=== PATIENT | male | born 1950 | race Caucasian/White ===

== ENCOUNTER 2018-12-30 05:25 | Inpatient (IN) ==
[2018-12-30] MEDS ORDERED: Vancomycin Inj 1,000 MG in Sodium Chlor 0.9% Inj 250 ML IV.SIG SCH (06:00)
[2018-12-30] MEDS ORDERED: Metoprolol Tartrate 25 MG Tablet PO ONE (06:00)
[2018-12-30] MEDS ORDERED: Chlorhexidine Gluconate 2% 1 Pack (2 Cloths) TOPICAL ONE (06:00)
[2018-12-30] MEDS ORDERED: ceFAZolin 2 GM IV; once IV.SIG ONE (06:00)
[2018-12-30] MEDS ORDERED: Chlorhexidine 4% Topical 120 APPLIC/120 ML Bottle TOPICAL SCH (06:00)
[2018-12-30] MEDS ORDERED: Sodium Chlor 0.9% Inj 500 ML IV.CONT ONE (06:00)
[2018-12-30 06:54] LABS: Bacteria,Urine Occasional /hpf; Bilirubin,Urine Negative (Negative); Clarity,Urine Clear (Clear); Color,Urine Yellow (Yellw/Straw); Glucose,Urine (UA) Negative (Negative); Hyaline Casts,Urine 1 /lpf (0-3); Leukocyte Esterase,Urine Moderate (Negative); Mucus,Urine Few /lpf (Occasional); Nitrite,Urine Negative (Negative); Specific Gravity,Urine 1.018 (1.002-1.035); Squamous Epithelial Cell,Urine <1 /hpf (0-5)
[2018-12-30 06:55] LABS: Urobilinogen,Urine 0.2 mg/dL (Less than 2)
[2018-12-30] MEDS ORDERED: Tobramycin Sulfate 1,200 MG Vial (for ortho/sterile core) OTHER ONE (07:34)
[2018-12-30] MEDS ORDERED: Lidocaine PF 1% Inj 5 ML Syringe INFILTRATN ONE (08:19)
[2018-12-30] MEDS ORDERED: Post-op Orders (for Pharmacy) OTHER STA (09:34)
[2018-12-30] MEDS ORDERED: Bisacodyl 10 MG Supp RECTAL PRN (09:34)
[2018-12-30] MEDS ORDERED: Promethazine 25 MG Supp RECTAL PRN (09:34)
--- NOTE | 2018-12-30 09:43 | P.OP ---
- Preoperative Diagnosis (1) Chronic osteomyelitis of right tibia Date of procedure: 12/30/18 Procedure: Removal of deep hardware, irrigation debridement of right tibia osteomyelitis, placement of antibiotic beads Surgeon: Germán Cade MD Paddle Dyeing Machine Operator: WILLIAM Jolly PA-C The surgical procedure was assisted by my physician drafter assistant. My P.A. presence was necessary throughout this case for the manipulation and positioning of the surgical extremity. My P.A. was assisting me throughout the duration of this procedure. The skill set of a physician drafter assistant was medically necessary to complete this procedure. During the surgical case the surgical coordinator was working at the back table and the physician drafter assistant was directly assisting me. Operation and Findings: Jack is a 68-year-old male who previously had open right tibia fracture treated with intramedullary nail fixation. He has had previous problems with infection. He has been treated with IV antibiotics. He has had persistent drainage from multiple sites along his tibia. Informed consent was obtained and OpSite was marked. Prior to surgery I discussed with patient the risk and benefits of surgery. I discussed the plan of removal of hardware, irrigation and debridement of tibia, and placement of antibiotic beads. He understands that there is a possibility of recurrence of infection. He was brought the operating room. He was given IV sedation and general anesthesia. Antibiotics were held until cultures were obtained. Right leg was prepped with alcohol followed by Hibiclens and draped in usual sterile fashion. Timeout procedure was performed. Procedure began with removal of hardware. Incisions were made over the screws. 3 screws were localized under fluoroscopy. There was significant scar tissue around the screws. Screws were now loosened. A 3 cm incision was now made over the anterior knee. A medial arthrotomy was created. A guidepin was now placed through the proximal tibia into the canal. Using fluoroscopy the guidepin was placed into the tibial nail. An opening reamer was now placed over the guidepin to open the tibial cortex. Using appropriate screwdriver the end cap was removed. Next an extractor was screwed into the nail. Each of the screws were now removed. The nail was now back slapped and removed. Fluoroscopy confirmed that fracture was healed and all appropriate hardware had been removed. Next attention was turned to irrigation debridement of the tibia. A ball- tipped guidepin was placed down the canal of the tibia. Fluoroscopy confirmed the guidepin placement. The canal was sequentially reamed up to size 13. Tissue was obtained from the tibial canal for cultures. Curettes and rongeurs were also used to debride around the screw holes. Next a canal brush was used to help clean the tibial canal. Pulsatile lavage was also used to clean the tibial canal. Next this posterior and antibiotic bead placement. 20 cc of Stimulan bone cement was mixed with 2 g of vancomycin and 1.2 g tobramycin. Cement was made into 2 pellets. Once the pellets were completely set, the pellets were packed into the tibial canal. Fluoroscopy confirmed appropriate placement of antibiotic beads. At this point the incisions were closed with 0 PDS, 3-0 PDS, and 3-0 nylon. Sterile dressings were applied. Patient was transferred to recovery room in stable condition.
[2018-12-30] MEDS ORDERED: *HYDROmorphone PF Inj 1 MG/ML Ampul PERIprocedural Use ONLY ONE ×3 (10:10→11:28)
[2018-12-30] MEDS ORDERED: fentaNYL Citrate Inj 100 MCG/2 ML Ampul ONE (10:13)
[2018-12-30] MEDS ORDERED: Morphine Inj 4 MG/ML Vial ONE (10:14)
--- NOTE | 2018-12-30 10:17 | P.PNOP ---
Subjective Interval history: POD 0 s/p Removal of tibial nail with I&D and Abx bead placement right tibia stable in pacu Physical Exam Vital signs: Vital Signs 12/30/18 06:42 Temperature 98.2 F Pulse Rate 65 Respiratory Rate 18 Blood Pressure 126/74 Pulse Oximetry 95 Intake & Output 12/29/18 12/30/18 12/30/18 18:59 06:59 18:59 Intake Total 1000 / 1000 Output Total 200 / 200 Balance 800 / 800 Weight 88.4 kg Intake: IV 1000 / 1000 LR 1000 mL Inj 1,000 ML @ 30 1000 / 1000 mls/hr IV.CONT .Q24H ONE Rx#: [id number] Output: Estimated Blood Loss 200 / 200 Other: Weight On Admission 88.4 kg Narrative: RLE: dressings clean and dry. intact. Results - Labs Laboratory Results - last 24 hr 12/30/18 06:00 Urine Color Yellow Urine Clarity Clear Urine pH 5.0 Ur Specific [place] 1.018 Urine Protein Negative Urine Glucose (UA) Negative Urine Ketones Negative Urine Occult Blood Negative Urine Nitrate Negative Urine Bilirubin Negative Urine Urobilinogen 0.2 Ur Leukocyte Esterase Moderate H Urine RBC 3 Urine WBC 32 H Ur Squamous Epith Cells <1 Urine Bacteria Occasional H Hyaline Casts 1 Urine Mucus Few H Micro UA Comment Culture indicated Ur Microscopic Review Not Reportable Urine Culture Comments Culture indicated Assessment and Plan - Assessment and Plan 1) Right Tibial Nail HW infection s/p Removal of tibial nail with I&D and Abx bead placement right tibia - POD 0 -WBAT -daily dressing changes with xeroform/4x4/MARK -monitor cultures -infectious disease consulted -will likely need IV Abx given chronicity of infection. will await ID recs -patient receiving pain meds from pain mgmt and last received Rx on 12/19 for a 1 month supply of oxycodone 10/325 -will defer to pain mgmt for rx moving forward -plan for home with [facility] pending cultures and infectious dz recs -f/u with Jose David or SARANYA in 2 weeks E-FORE Prescription Drug Monitoring Database has been queried and verified prior to prescribing the controlled substance. Acute pain exception. This patient has normal, predicted, physiological, and time limited response to an adverse mechanical stimulus associated with surgery, trauma, or acute illness as described in my notes. There is a lack of alternative treatment options other than to include the prescribed narcotic treatment for this condition.
[2018-12-30] MEDS ORDERED: HYDROmorphone PF Inj 1 MG/ML Ampul IV.PUSH ONE (11:28)
--- NOTE | 2018-12-30 14:55 | ECG ---
Date Performed: 12/30/2018 Time Performed: 06:17:28 PTAGE: 68 years EKG: Sinus rhythm SEPTAL MYOCARDIAL INFARCTION , OF INDETERMINATE AGE POSSIBLE LATERAL MYOCARDIAL INFARCTION , OF INDE TERMINATE AGE CRITERIA FOR THE SEPTAL INFARCT ARE NEW AND IT MAY BE THAT LEADS V1 AND V2 ARE REVERSED . CLINICAL CORRELATION IS ADVISED ABNORMAL ECG Compared to PREVIOUS TRACING , there has been an overall increase in voltage and the lateral T-wave c hanges. PREVIOUS TRACIN12/24/2011 07.22 DOCTOR: Susana Lyman Interpretating Date/Time 12/30/2018 14:47:59
[2018-12-30] MEDS ORDERED: Vancomycin Consult Pharmacy OTHER PRN (15:01)
--- NOTE | 2018-12-30 15:10 | P.CONID ---
History of Present Illness Service: Infectious disease Consult date: 12/30/18 Requesting Physician: Germán Cade Reason for Consult: Evaluate patient with osteo right leg status post removal of hardware Primary Care Provider: Jacob Quinteros MD History of Present Illness: Patient seen and examined. Records reviewed. Patient is a 68-year-old male, admitted to the hospital for his surgery on his right lower extremity. Patient originally had the injury back in 2011 when he sustained an open fracture of his right tib fibula. He underwent repair and had an IM and screws in place. According to the patient after that he developed an infection, and received a course of IV antibiotics that was given to him for 6 weeks. He thinks is around [address] Castillo was the infectious disease doctor who treated him. Patient stated he has had other hospitalizations and surgery on his right lower extremity due to infection and they were all done in [facility]. He thinks that he has not received any other course of long IV antibiotics. He apparently has been having problem with draining wounds on his right lower extremity one in the ankle area one in the mid anterior rosen, and one below the right knee. He was told that he had an MRSA infection previously. Patient has been on and off oral Bactrim over the last 1 year that his primary care physician prescribed to him. Patient was brought into the hospital this time, and he underwent surgery , had removal of the hardware and placement of antibiotic beads. He denies any fever chills or sweats. He has not had any problem as far as diarrhea or rash or itching. Denies any urinary complaints. Infectious disease consultation has been requested to assist with evaluation and treatment of his ongoing infection. Review of Systems Constitutional: Denies chills, Denies fever(s), Denies night sweats Eyes: Denies discharge, Denies dry eyes Ears, Nose, Mouth, and Throat: Denies difficulty swallowing, Denies lip swelling , Denies nasal congestion, Denies nasal discharge, Denies pain with swallowing, Denies sore throat Cardiovascular: Denies chest pain, Denies shortness of breath Respiratory: Denies chest congestion, Denies cough, Denies shortness of breath Gastrointestinal: Denies abdominal pain, Denies loose stools, Denies nausea, Denies pain with swallowing, Denies vomiting Genitourinary: Denies difficulty urinating, Denies painful urination Musculoskeletal: Reports joint pain, Denies joint swelling Skin/Breast: Reports wounds PMFSH - History History Provided By: Patient - Medical History Medical History: Medical History (Last Reviewed 12/30/18 @ 15:06 by Ashlyn Camarillo MD) Hernia, inguinal, left High cholesterol Hypertension - Surgical History Surgical History: Surgical History (Last Reviewed 12/30/18 @ 15:06 by Ashlyn Camarillo MD) History of arthroscopy of both knees History of back surgery History of hip surgery History of orthopedic surgery Hx of CABG Hx of cardiac cath - Tobacco History Second Hand Smoke Exposure: No Tobacco Use In Past 30 Days: No Smoking Status: Former smoker - Alcohol History How Often Do You Have a Drink Containing Alcohol: 2 to 4 times a month - Substance Use History Substance History: No History of Abuse Medications and Allergies Active Medications: Active Medications Hydrocodone Bitart/Acetaminophen ([place] 7.5/325) 1 tab PO Q3H PRN PRN Reason: Pain Scale 3-10 Al Hydroxide/Mg Hydroxide (Milk Of Magnesia Liq) 30 ml PO BID PRN PRN Reason: MILD CONSTIPATION Bisacodyl (Dulcolax Supp) 10 mg RECTAL DAILY PRN PRN Reason: SEVERE CONSITIPATION Chlorhexidine Gluconate (Hibiclens 4% Topical) 1 applicatio TOPICAL ONCE [facility] Stop: 01/03/19 05:59 Diphenhydramine HCl (Benadryl) 25 mg PO Q6H PRN PRN Reason: ITCHING Lactated Ringer's (Lr 1000 Ml Inj) 1,000 mls @ 30 mls/hr IV.CONT .Q24H ONE Stop: 12/31/18 05:59 Last Infusion: 12/30/18 09:07 Dose: Infused Sodium Chloride (Ns Inj) 500 mls @ 30 mls/hr IV.CONT .[id number] ONE Stop: 12/30/18 22:39 Last Admin: 12/30/18 08:22 Dose: Not Given Vancomycin HCl 1,000 mg/ (Sodium Chloride) 250 mls @ 250 mls/hr IV.SIG [employer] [facility] Stop: 01/02/19 05:59 Lactated Ringer's (Lr 1000 Ml Inj) 1,000 mls @ 80 mls/hr IV.CONT .[id number] [facility] Last Admin: 12/30/18 13:58 Dose: Not Given Vancomycin HCl 1,000 mg/ (Sodium Chloride) 250 mls @ 200 mls/hr IV.SIG Q12H [facility] Stop: 12/31/18 10:14 Miscellaneous Information ([facility]) 1 each OTHER UNSCH PRN PRN Reason: SEE LABEL COMMENTS Stop: 12/31/18 10:04 Morphine Sulfate (Morphine Inj) 4 mg IV.PUSH Q3H PRN PRN Reason: BREAKTHROUGH PAIN Ondansetron HCl (Zofran Odt) 4 mg PO Q6H PRN PRN Reason: NAUSEA OR VOMITING Ondansetron HCl (Zofran Inj) 4 mg IV.PUSH Q6H PRN PRN Reason: NAUSEA OR VOMITING Promethazine HCl (Phenergan) 25 mg PO Q6H PRN PRN Reason: NAUSEA OR VOMITING Promethazine HCl (Phenergan Supp) 25 mg RECTAL Q6H PRN PRN Reason: NAUSEA OR VOMITING Senna/Docusate Sodium (Radha-Colace) 1 tab PO BID [facility] Sennosides (Senokot) 17.2 mg PO BID PRN PRN Reason: Moderate Constipation Sodium Chloride (Ns Flush) 2 ml IV.FLUSH BID [facility] Sodium Chloride (Ns Flush) 2 ml IV.FLUSH PRN PRN PRN Reason: FLUSH AFTER USING IV ACCESS Allergies Allergy/AdvReac Type Severity Reaction Status Date / Time No Known Allergies Allergy Verified 12/28/18 14:16 Home Medications Medication Instructions Recorded Confirmed Type clopidogrel [Plavix] 75 mg PO DAILY 10/14/18 12/30/18 History lisinopril 10 mg PO DAILY 10/14/18 12/30/18 History naloxone [Narcan] 1 spray INTRANASAL Q2-3M PRN 10/14/18 12/30/18 History oxycodone-acetaminophen 1 tab PO Q6H PRN 10/14/18 12/30/18 History aspirin 325 mg PO DAILY 12/28/18 12/30/18 History metoprolol succinate 25 mg PO BID 12/28/18 12/30/18 History Exam Vital signs: Vital Signs 12/30/18 06:42 12/30/18 10:04 12/30/18 10:15 Temperature 98.2 F 97.8 F Pulse Rate 65 75 75 Respiratory Rate 18 14 15 Blood Pressure 126/74 146/73 H 142/69 H Pulse Oximetry 95 95 96 12/30/18 10:30 12/30/18 10:45 12/30/18 11:00 Temperature Pulse Rate 71 75 73 Respiratory Rate 13 16 12 Blood Pressure 122/63 132/78 115/65 Pulse Oximetry 94 L 96 95 12/30/18 11:15 12/30/18 11:30 12/30/18 12:01 Temperature Pulse Rate 71 74 74 Respiratory Rate 14 20 22 Blood Pressure 120/68 105/65 116/69 Pulse Oximetry 95 95 97 12/30/18 13:00 12/30/18 13:30 Temperature 98.5 F Pulse Rate 76 80 Respiratory Rate 20 19 Blood Pressure 115/69 115/69 Pulse Oximetry 96 95 Intake & Output 12/29/18 12/30/18 12/30/18 18:59 06:59 18:59 Intake Total 1000 / 1000 Output Total 200 / 200 Balance 800 / 800 Weight 88.4 kg Intake: IV 1000 / 1000 LR 1000 mL Inj 1,000 ML @ 30 1000 / 1000 mls/hr IV.CONT .Q24H ONE Rx#: [id number] Output: Estimated Blood Loss 200 / 200 Other: Weight On Admission 88.4 kg Narrative: Physical examination GENERAL: Patient is a well-nourished, well-developed male, awake and alert, not in respiratory distress. SKIN: Cool and dry. No generalized rash, no ecchymoses and no evidence of embolic lesions. HEAD: Atraumatic. Normocephalic. No temporal wasting, or tenderness. EYES: [place] conjunctiva. No petechia or hemorrhage. Pupils equal, round and reactive to light. Extraocular movements full and intact. No scleral icterus. No injection or drainage. EARS, NOSE AND THROAT: Nose without bleeding or purulent nasal discharge. No sinus tenderness. Mucous membranes pink and moist. No oral lesions noted. No exudate. No oral thrush. NECK: Trachea midline. Supple and not tender, no meningeal signs CARDIOVASCULAR: Regular rate and rhythm. No murmurs, rubs or gallops heard RESPIRATORY: Clear to auscultation. Breath sounds equal bilaterally. No rales , wheezing or rhonchi ABDOMEN: Soft, non-tender, nondistended. Bowel sounds present and normoactive. No guarding. No rebound. No organomegaly. EXTREMITIES: No clubbing, cyanosis, or edema. He has dry intact dressings on his RLE from OR today. No calf tenderness. NEUROLOGICAL: Awake and alert. Cranial nerves grossly intact. Motor grossly within normal limits. PSYCHIATRIC: Normal affect, calm and cooperative. LINE: No evidence of infection Results - Labs Labs: Laboratory Results - last 24 hr 12/30/18 06:00 Urine Color Yellow Urine Clarity Clear Urine pH 5.0 Ur Specific [place] 1.018 Urine Protein Negative Urine Glucose (UA) Negative Urine Ketones Negative Urine Occult Blood Negative Urine Nitrate Negative Urine Bilirubin Negative Urine Urobilinogen 0.2 Ur Leukocyte Esterase Moderate H Urine RBC 3 Urine WBC 32 H Ur Squamous Epith Cells <1 Urine Bacteria Occasional H Hyaline Casts 1 Urine Mucus Few H Micro UA Comment Culture indicated Ur Microscopic Review Not Reportable Urine Culture Comments Culture indicated Assessment and Plan - Plan Impression Chronic infection RLE, 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 Recommendation Get some baseline labs, CBC, CMP, ESR, CRP Get records from his primary care physician if any cultures done in the last year Follow results of the culture and adjust antibiotics accordingly IV Vanco IV cefepime Will adjust once cultures are available He will need a course of IV antibiotics, possibly 6 weeks, may need p.o. as well Will need to wait for the results of the culture to determine what antibiotics to use for discharge Discussed with the patient that he will referred back to his ID when he gets discharge from the hospital to follow him on his treatment and make changes if indicated I will follow along with you Thank you for this consultation I will be GURPREET 12/31-01/08 Other ID MD covering in my absence
[2018-12-30 17:38] LABS: Albumin 3.4 g/dL (3.4-5.0); Anion Gap 7 meq/L (5-15); Aspartate Aminotransferase 46 U/L (15-37); Blood Urea Nitrogen 13 mg/dL (7-18); Calcium 8.1 mg/dL (8.5-10.1); Carbon Dioxide 24.1 meq/L (21.0-32.0); Chloride 105 meq/L (98-107); Glomerular Filtration Rate 58 mL/min (>89); Glucose,Random 187 mg/dL (74-106); Potassium 4.7 meq/L (3.5-5.1); Sodium 136 meq/L (136-145)
[2018-12-30 17:42] LABS: Alanine Aminotransferase 47 U/L (12-78); Alkaline Phosphatase 94 U/L (45-117); C-Reactive Protein 0.66 mg/dL (0.00-0.30); Total Protein 6.5 g/dL (6.4-8.2)
[2018-12-30 17:44] LABS: Baso % (Auto) 0.7 % (0.0-2.0); Eos % (Auto) 0.1 % (0.0-4.0); Hematocrit 40.7 % (39.0-51.0); Hemoglobin 14.1 gm/dL (13.0-17.0); Lymph # (Auto) 0.3 th/mm3 (1.0-4.8); Lymph % (Auto) 5.1 % (9.0-44.0); Mean Corpuscular HGB Conc 34.5 % (32.0-36.0); Mean Corpuscular Hemoglobin 36.1 pg (27.0-34.0); Mean Corpuscular Volume 104.5 fL (80.0-100.0); Mean Platelet Volume 9.7 fL (7.0-11.0); Mono # (Auto) 0.3 th/mm3 (0.0-0.9); Neut # (Auto) 6.1 th/mm3 (1.8-7.7); Neut % (Auto) 90.1 % (16.0-70.0); Platelet Count 143 th/mm3 (150-450); Red Cell Distribution Width 13.2 % (11.6-17.2); White Blood Count 6.8 th/mm3 (4.0-11.0)
[2018-12-30 19:24] LABS: Erythrocyte Sedimentation Rate 10 mm/hr (0-20)
--- NOTE | 2018-12-30 19:32 | XR ---
EXAM DATE: 12/30/2018 7:29 PM EST AGE/SEX: 68 years / Male INDICATIONS: Right tibia hardware removal and antibiotic spacer placement. CLINICAL DATA: This is the patient's initial encounter. Patient reports that signs and symptoms have been present for 1 day and indicates a pain score of Nonresponsive. MEDICAL/SURGICAL HISTORY: Non-responsive. Non-responsive. COMPARISON: No prior exams available for comparison. FINDINGS: 6 images from the OR have been submitted. There is a tract seen along the tibia presumably from an in tramedullary shar that has been removed. This is now packed with numerous cylindrical packing material extending from the distal aspect of the tibia to the proximal tibia through the defect. CONCLUSION: Placement of multiple cylindrical densities in the tract of a intramedullary shar at the tibia. Electronically signed by: Kostas Lawson MD Board Certified Radiologist 12/30/2018 7:31 PM EST
[2018-12-30] MEDS: Morphine Inj 4 MG/ML Vial IV.PUSH PRN (19:46)
[2018-12-30] MEDS: Senna/Docusate Sodium 8.6/50 MG Tablet PO SCH ×2 (19:47→22:33)
[2018-12-30] MEDS: Vancomycin Inj 1,000 MG in Sodium Chlor 0.9% Inj 250 ML IV.SIG SCH ×2 (19:47→22:33)
[2018-12-31] MEDS: Morphine Inj 4 MG/ML Vial IV.PUSH PRN ×5 (04:18→22:47)
--- NOTE | 2018-12-31 07:27 | P.PNOP ---
Subjective Interval history: POD 1 s/p removal of IMN with Abx bead placement right tibia doing well. states pain and swelling Physical Exam Vital signs: Vital Signs 12/30/18 10:04 12/30/18 10:15 12/30/18 10:30 Temperature 97.8 F Pulse Rate 75 75 71 Respiratory Rate 14 15 13 Blood Pressure 146/73 H 142/69 H 122/63 Pulse Oximetry 95 96 94 L 12/30/18 10:45 12/30/18 11:00 12/30/18 11:15 Temperature Pulse Rate 75 73 71 Respiratory Rate 16 12 14 Blood Pressure 132/78 115/65 120/68 Pulse Oximetry 96 95 95 12/30/18 11:30 12/30/18 12:01 12/30/18 13:00 Temperature Pulse Rate 74 74 76 Respiratory Rate 20 22 20 Blood Pressure 105/65 116/69 115/69 Pulse Oximetry 95 97 96 12/30/18 13:30 12/30/18 16:00 12/30/18 20:00 Temperature 98.5 F 97.7 F 97.9 F Pulse Rate 80 83 76 Respiratory Rate 19 17 20 Blood Pressure 115/69 122/58 L 117/61 Pulse Oximetry 95 94 L 95 12/31/18 00:00 12/31/18 02:32 12/31/18 04:00 Temperature 98.4 F 97.6 F Pulse Rate 68 64 Respiratory Rate 20 20 20 Blood Pressure 96/52 L 111/65 Pulse Oximetry 94 L 96 12/31/18 04:23 Temperature Pulse Rate Respiratory Rate 20 Blood Pressure Pulse Oximetry Intake & Output 12/30/18 12/31/18 12/31/18 18:59 06:59 18:59 Intake Total 1000 / 1000 350 / 350 Output Total 200 / 200 Balance 800 / 800 350 / 350 Weight 88 kg 82.6 kg Intake: IV 1000 / 1000 350 / 350 LR 1000 mL Inj 1,000 ML @ 30 1000 / 1000 mls/hr IV.CONT .Q24H ONE Rx#: [id number] Maxipime Inj 2,000 MG In NS Inj 100 / 100 100 ML @ 200 mls/hr IV.SIG Q12H [facility] Rx#:[id number] Vancomycin Inj 1,000 MG In NS 250 / 250 Inj 250 ML @ 200 mls/hr IV.SIG Q12H [facility] Rx#:[id number] Output: Estimated Blood Loss 200 / 200 Narrative: RLE: dressings clean and dry. intact. NVI Results - Labs CBC & Chem 7: 12/30/18 14:40 12/30/18 14:40 Laboratory Results - last 24 hr 12/30/18 12/30/18 14:40 14:40 WBC 6.8 RBC 3.90 L Hgb 14.1 Hct 40.7 MCV 104.5 H MCH 36.1 H MCHC 34.5 RDW 13.2 Plt Count 143 L MPV 9.7 Neut % (Auto) 90.1 H Lymph % (Auto) 5.1 L Harvey % (Auto) 4.0 Eos % (Auto) 0.1 Baso % (Auto) 0.7 Neut # (Auto) 6.1 Lymph # (Auto) 0.3 L Harvey # (Auto) 0.3 Eos # (Auto) 0.0 Baso # (Auto) 0.0 WBC Differential . Differential Comment Auto diff final ESR 10 Sodium 136 Potassium 4.7 Chloride 105 Carbon Dioxide 24.1 Anion Gap 7 BUN 13 Creatinine 1.24 Estimated GFR 58 L Random Glucose 187 H Calcium 8.1 L Total Bilirubin 0.5 AST 46 H ALT 47 Alkaline Phosphatase 94 C-Reactive Protein 0.66 H Total Protein 6.5 Albumin 3.4 Microbiology 12/30/18 09:00 Tissue - Other Fungal Smear - Final No fungal elements seen 12/30/18 09:00 Tissue - Other Gram Stain - Final 12/30/18 09:00 Tissue - Other Fungal Smear - Final No fungal elements seen 12/30/18 09:00 Tissue - Other Gram Stain - Final 12/30/18 09:00 Wound - Other Fungal Smear - Final No fungal elements seen 12/30/18 09:00 Wound - Other Gram Stain - Final - Imaging Impressions Tibia/Fibula X-Ray 12/30/18 00:00 CONCLUSION: Placement of multiple cylindrical densities in the tract of a intramedullary shar at the tibia. Assessment and Plan - Assessment and Plan 1) Right Tibial Nail HW infection s/p Removal of tibial nail with I&D and Abx bead placement right tibia - POD 1 -WBAT -daily dressing changes with xeroform/4x4/MARK beginning POD 2 -monitor cultures -infectious disease consulted -will likely need IV Abx given chronicity of infection. will await ID recs -patient receiving pain meds from pain mgmt and last received Rx on 12/19 for a 1 month supply of oxycodone -will defer to pain mgmt for rx moving forward -plan for home with [facility] pending cultures and infectious dz recs -f/u with Jose David or SARANYA in 2 weeks E-FORCSE Prescription Drug Monitoring Database has been queried and verified prior to prescribing the controlled substance. Acute pain exception. This patient has normal, predicted, physiological, and time limited response to an adverse mechanical stimulus associated with surgery, trauma, or acute illness as described in my notes. There is a lack of alternative treatment options other than to include the prescribed narcotic treatment for this condition.
[2018-12-31] MEDS: Senna/Docusate Sodium 8.6/50 MG Tablet PO SCH ×2 (08:52→20:45)
[2018-12-31 09:31] LABS: Hematocrit 40.3 % (39.0-51.0); Hemoglobin 13.7 gm/dL (13.0-17.0)
[2018-12-31] MEDS: Vancomycin Inj 1,750 MG in Sodium Chlor 0.9% Inj 500 ML IV.SIG SCH (10:15)
[2018-12-31] MEDS: Lisinopril 10 MG Tablet PO SCH (14:08)
[2019-01-01] MEDS: Morphine Inj 4 MG/ML Vial IV.PUSH PRN ×6 (03:09→21:52)
[2019-01-01] MEDS: Vancomycin Inj 1,750 MG in Sodium Chlor 0.9% Inj 500 ML IV.SIG SCH ×2 (04:00→21:55)
--- NOTE | 2019-01-01 07:16 | P.PNOP ---
Subjective Interval history: POD 2 s/p removal of nail with I&D and Abx bead placement right tibia doing well. states pain and inability to walk. no changes. states stiffness of knee and ankle. cultures show MRSA Physical Exam Vital signs: Vital Signs 12/31/18 08:00 12/31/18 12:00 12/31/18 16:00 Temperature 97.5 F L 98 F 98.6 F Pulse Rate 69 77 70 Respiratory Rate 17 17 17 Blood Pressure 133/79 134/66 132/70 Pulse Oximetry 98 96 96 12/31/18 20:00 01/01/19 00:00 01/01/19 04:24 Temperature 98.9 F 98.5 F 98.5 F Pulse Rate 81 74 76 Respiratory Rate 18 18 17 Blood Pressure 149/70 H 128/78 132/73 Pulse Oximetry 98 96 96 Intake & Output 12/31/18 01/01/19 01/01/19 18:59 06:59 18:59 Intake Total 1237.5 / 1237.5 1277.5 / 1277.5 Output Total 2500 / 2500 1924 / 5 Balance -1262.5 / -1262.5 -647.5 / -647.5 Weight 82.6 kg Intake: IV 717.5 / 717.5 517.5 / 517.5 Maxipime Inj 2,000 MG In NS Inj 200 / 200 100 ML @ 200 mls/hr IV.SIG Q12H [facility] Rx#:[id number] Vancomycin Inj 1,750 MG In NS 517.5 / 517.5 517.5 / 517.5 Inj 500 ML @ 250 mls/hr IV.SIG Q18H [facility] Rx#:[id number] Oral 520 / 520 760 / 760 Output: Urine 2500 / 2500 1924 Other: Date of Last Bowel Movement 12/30/18 Narrative: RLE: dressings clean and dry. intact. nvi. ROM of knee 0-60deg Results - Labs CBC & Chem 7: 12/31/18 09:16 12/30/18 14:40 Laboratory Results - last 24 hr 12/31/18 09:16 Hgb 13.7 Hct 40.3 Microbiology 12/30/18 09:00 Tissue - Other Gram Stain - Final 12/30/18 09:00 Tissue - Other Wound Culture - Preliminary S. aureus MRSA 12/30/18 09:00 Tissue - Other Gram Stain - Final 12/30/18 09:00 Tissue - Other Wound Culture - Preliminary S. aureus MRSA 12/30/18 09:00 Tissue - Other Fungal Smear - Final No fungal elements seen 12/30/18 09:00 Wound - Other Gram Stain - Final 12/30/18 09:00 Wound - Other Wound Culture - Preliminary S. aureus MRSA 12/30/18 09:00 Wound - Other Fungal Smear - Final No fungal elements seen 12/30/18 06:00 Clean Catch Urine Urine Culture - Preliminary No growth in 24 hours 12/30/18 14:45 Blood - Peripheral Aerobic Blood Culture - Preliminary No growth in 1 day 12/30/18 14:45 Blood - Peripheral Anaerobic Blood Culture - Preliminary No growth in 1 day 12/30/18 14:40 Blood - Peripheral Aerobic Blood Culture - Preliminary No growth in 1 day 12/30/18 14:40 Blood - Peripheral Anaerobic Blood Culture - Preliminary No growth in 1 day Assessment and Plan - Assessment and Plan 1) Right Tibial Nail HW infection s/p Removal of tibial nail with I&D and Abx bead placement right tibia - POD 2 -WBAT -daily dressing changes with xeroform/4x4/MARK -monitor cultures--> MRSA -infectious disease consulted -will need IV Abx given chronicity of infection. will await ID recs -patient receiving pain meds from pain mgmt and last received Rx on 12/19 for a 1 month supply of oxycodone 10/325 -will defer to pain mgmt for rx moving forward -plan for home with [facility] pending cultures and infectious dz recs -f/u with Jose David or SARANYA in 2 weeks [facility] Prescription Drug Monitoring Database has been queried and verified prior to prescribing the controlled substance. Acute pain exception. This patient has normal, predicted, physiological, and time limited response to an adverse mechanical stimulus associated with surgery, trauma, or acute illness as described in my notes. There is a lack of alternative treatment options other than to include the prescribed narcotic treatment for this condition.
[2019-01-01 08:29] LABS: Hematocrit 37.2 % (39.0-51.0); Hemoglobin 13.2 gm/dL (13.0-17.0)
[2019-01-01] MEDS: Senna/Docusate Sodium 8.6/50 MG Tablet PO SCH ×2 (09:06→20:02)
[2019-01-01] MEDS: Lisinopril 10 MG Tablet PO SCH (09:07)
[2019-01-02] MEDS: Morphine Inj 4 MG/ML Vial IV.PUSH PRN ×4 (05:42→22:20)
--- NOTE | 2019-01-02 07:09 | P.PNOP ---
Subjective Interval history: POD 3 s/p SUSHILA right tibia with Abx spacer doing well no changes Physical Exam Vital signs: Vital Signs 01/01/19 08:00 01/01/19 12:00 01/01/19 16:00 Temperature 96.5 F L 97.8 F 97.8 F Pulse Rate 86 87 85 Respiratory Rate 19 Blood Pressure 119/59 L 148/68 H 154/81 H Pulse Oximetry 94 L 96 95 01/01/19 20:00 01/01/19 22:00 01/02/19 00:00 Temperature 98.9 F 98.3 F Pulse Rate 83 81 Respiratory Rate 18 16 18 Blood Pressure 143/70 H 153/74 H Pulse Oximetry 96 96 Intake & Output 01/01/19 01/02/19 01/02/19 18:59 06:59 18:59 Intake Total 700 / 700 1397.5 / 1397.5 Output Total 775 / 775 1999 Balance -75 / -75 -602.5 / -602.5 Weight 82.6 kg Intake: IV 200 / 200 617.5 / 617.5 Maxipime Inj 2,000 MG In NS Inj 200 / 200 100 / 100 100 ML @ 200 mls/hr IV.SIG Q12H [facility] Rx#:[id number] Vancomycin Inj 1,750 MG In NS 517.5 / 517.5 Inj 500 ML @ 250 mls/hr IV.SIG Q18H [facility] Rx#:[id number] Oral 500 / 500 780 / 780 Output: Urine 775 / 775 1999 Other: # Bowel Movements 0 Narrative: RLE: dressings clean and dry. intact. nvi Results - Labs CBC & Chem 7: 01/01/19 07:41 12/30/18 14:40 Laboratory Results - last 24 hr 01/01/19 07:41 Hgb 13.2 Hct 37.2 L Microbiology 12/30/18 09:00 Tissue - Other Gram Stain - Final 12/30/18 09:00 Tissue - Other Wound Culture - Final S. aureus MRSA 12/30/18 09:00 Tissue - Other Gram Stain - Final 12/30/18 09:00 Tissue - Other Wound Culture - Final S. aureus MRSA 12/30/18 09:00 Wound - Other Gram Stain - Final 12/30/18 09:00 Wound - Other Wound Culture - Final S. aureus MRSA 12/30/18 14:45 Blood - Peripheral Aerobic Blood Culture - Preliminary No growth in 2 days 12/30/18 14:45 Blood - Peripheral Anaerobic Blood Culture - Preliminary No growth in 2 days 12/30/18 14:40 Blood - Peripheral Aerobic Blood Culture - Preliminary No growth in 2 days 12/30/18 14:40 Blood - Peripheral Anaerobic Blood Culture - Preliminary No growth in 2 days 12/30/18 06:00 Clean Catch Urine Urine Culture - Final No growth in 48 hours Assessment and Plan - Assessment and Plan 1) Right Tibial Nail HW infection s/p Removal of tibial nail with I&D and Abx bead placement right tibia - POD 3 -WBAT -daily dressing changes with xeroform/4x4/MARK -monitor cultures--> MRSA -infectious disease consulted -will need IV Abx given chronicity of infection. will await ID recs -patient receiving pain meds from pain mgmt and last received Rx on 12/19 for a 1 month supply of oxycodone 10/325 -will defer to pain mgmt for rx moving forward -plan for home with [facility] pending cultures and infectious dz recs -f/u with Jose David or SARANYA in 2 weeks [facility] Prescription Drug Monitoring Database has been queried and verified prior to prescribing the controlled substance. Acute pain exception. This patient has normal, predicted, physiological, and time limited response to an adverse mechanical stimulus associated with surgery, trauma, or acute illness as described in my notes. There is a lack of alternative treatment options other than to include the prescribed narcotic treatment for this condition.
[2019-01-02] MEDS: Lisinopril 10 MG Tablet PO SCH (08:00)
[2019-01-02] MEDS: Senna/Docusate Sodium 8.6/50 MG Tablet PO SCH ×2 (08:00→20:36)
[2019-01-02] MEDS ORDERED: Pharmacy Ordered Lab Info OTHER ONE (15:45)
[2019-01-02] MEDS: Vancomycin Inj 1,750 MG in Sodium Chlor 0.9% Inj 500 ML IV.SIG SCH (18:17)
--- NOTE | 2019-01-02 18:45 | P.PNID ---
Subjective Remarks: ID coverage. Chart reviewed. Patient notes discomfort in the right leg. No fever. Develop bleeding from a scratch at the posterior right tibia. He complains of itching all over. There is redness of the skin at the flank and back. Patient is status post hardware removal from the right leg. Wound culture has MRSA. Patient is a 68-year-old male, admitted to the hospital for his surgery on his right lower extremity. Patient originally had the injury back in 2011 when he sustained an open fracture of his right tib fibula. He underwent repair and had an IM and screws in place. According to the patient after that he developed an infection, and received a course of IV antibiotics that was given to him for 6 weeks. He thinks is around [address] Castillo was the infectious disease doctor who treated him. Patient stated he has had other hospitalizations and surgery on his right lower extremity due to infection and they were all done in [facility]. He thinks that he has not received any other course of long IV antibiotics. He apparently has been having problem with draining wounds on his right lower extremity one in the ankle area one in the mid anterior rosen, and one below the right knee. He was told that he had an MRSA infection previously. Patient has been on and off oral Bactrim over the last 1 year that his primary care physician prescribed to him. Patient was brought into the hospital this time, and he underwent surgery , had removal of the hardware and placement of antibiotic beads. He denies any fever chills or sweats. He has not had any problem as far as diarrhea or rash or itching. Denies any urinary complaints. Past Medical History: - Medical History Medical History: Medical History (Last Reviewed 12/30/18 @ 15:06 by Ashlyn Camarillo MD) Hernia, inguinal, left High cholesterol Hypertension - Surgical History Surgical History: Surgical History (Last Reviewed 12/30/18 @ 15:06 by Ashlyn Camarillo MD) History of arthroscopy of both knees History of back surgery History of hip surgery History of orthopedic surgery Hx of CABG Hx of cardiac cath Allergies/Adverse Reactions: Allergies No Known Allergies Allergy (Verified 12/28/18 14:16) Objective Vital Signs 01/01/19 20:00 01/01/19 22:00 01/02/19 00:00 Temperature 98.9 F 98.3 F Pulse Rate 83 81 Respiratory Rate 18 16 18 Blood Pressure 143/70 H 153/74 H Pulse Oximetry 96 96 01/02/19 08:00 01/02/19 09:19 01/02/19 11:36 Temperature 97.8 F Pulse Rate 74 Respiratory Rate 17 20 20 Blood Pressure 129/73 Pulse Oximetry 98 01/02/19 12:00 01/02/19 14:41 01/02/19 15:56 Temperature 97.5 F L Pulse Rate 78 Respiratory Rate 16 20 20 Blood Pressure 120/57 L Pulse Oximetry 95 01/02/19 16:00 Temperature 98.6 F Pulse Rate 79 Respiratory Rate 17 Blood Pressure 142/67 H Pulse Oximetry 96 Intake & Output 01/01/19 01/02/19 01/02/19 18:59 06:59 18:59 Intake Total 700 / 700 1397.5 / 1397.5 100 / 100 Output Total 775 / 775 1999 Balance -75 / -75 -602.5 / -602.5 100 / 100 Weight 82.6 kg Intake: IV 200 / 200 617.5 / 617.5 100 / 100 Maxipime Inj 2,000 MG In NS Inj 200 / 200 100 / 100 100 / 100 100 ML @ 200 mls/hr IV.SIG Q12H [facility] Rx#:[id number] Vancomycin Inj 1,750 MG In NS 517.5 / 517.5 Inj 500 ML @ 250 mls/hr IV.SIG Q18H [facility] Rx#:[id number] Oral 500 / 500 780 / 780 Output: Urine 775 / 775 1999 Other: Date of Last Bowel Movement 12/31/18 # Bowel Movements 0 12/30/18 09:00 Wound - Other Acid Fast Bacilli Smear - Final No acid fast bacilli seen 12/30/18 09:00 Wound - Other Mycobacterial Culture - Pending 12/30/18 09:00 Tissue - Other Acid Fast Bacilli Smear - Final No acid fast bacilli seen 12/30/18 09:00 Tissue - Other Mycobacterial Culture - Pending 12/30/18 09:00 Tissue - Other Acid Fast Bacilli Smear - Final No acid fast bacilli seen 12/30/18 09:00 Tissue - Other Mycobacterial Culture - Pending 12/30/18 14:45 Blood - Peripheral Aerobic Blood Culture - Preliminary No growth in 3 days 12/30/18 14:45 Blood - Peripheral Anaerobic Blood Culture - Preliminary No growth in 3 days 12/30/18 14:40 Blood - Peripheral Aerobic Blood Culture - Preliminary No growth in 3 days 12/30/18 14:40 Blood - Peripheral Anaerobic Blood Culture - Preliminary No growth in 3 days 12/30/18 09:00 Tissue - Other Gram Stain - Final 12/30/18 09:00 Tissue - Other Wound Culture - Final S. aureus MRSA 12/30/18 09:00 Tissue - Other Gram Stain - Final 12/30/18 09:00 Tissue - Other Wound Culture - Final S. aureus MRSA 12/30/18 09:00 Wound - Other Gram Stain - Final 12/30/18 09:00 Wound - Other Wound Culture - Final S. aureus MRSA 12/30/18 06:00 Clean Catch Urine Urine Culture - Final No growth in 48 hours 12/30/18 09:00 Tissue - Other Fungal Smear - Final No fungal elements seen 12/30/18 09:00 Tissue - Other Fungal Culture - Pending 12/30/18 09:00 Wound - Other Fungal Smear - Final No fungal elements seen 12/30/18 09:00 Wound - Other Fungal Culture - Pending 12/30/18 09:00 Tissue - Other Fungal Smear - Final No fungal elements seen 12/30/18 09:00 Tissue - Other Fungal Culture - Pending Lab - Hematology Results 01/01/19 07:41 Hgb 13.2 Hct 37.2 L Lab - Chemistry Results 01/02/19 08:32 Creatinine 0.91 Estimated GFR 83 L Imaging: ITS Impressions Tibia/Fibula X-Ray 12/30/18 00:00 CONCLUSION: Placement of multiple cylindrical densities in the tract of a intramedullary shar at the tibia. Physical Exam: GENERAL: Alert and oriented, no acute distress. HEENT: Head atraumatic. Extraocular movements grossly intact, pupils reactive to light. No icterus. No oropharyngeal lesions. No icterus. NECK: Supple without adenopathy. No swelling. LUNGS: Clear to auscultation. HEART: Regular rate and rhythm. No murmurs rubs or gallops. ABDOMEN: Bowel sounds present, soft, no tenderness appreciated. EXTREMITIES: Right lower extremity surgical incisions are intact. No clubbing or cyanosis or edema. SKIN: Erythematous macular rash at the back and buttocks. NEUROLOGIC: No gross focal finding. PSYCH: Calm and cooperative. Assessment and Plan - Plan Impression Chronic infection RLE, 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 Recommendation Stop Vancomycin he may be exhibiting skin rash related to the Vanco.. Stop cefepime Begin IV Cubicin. He will need a course of IV antibiotics for 6 weeks and then probably additional p.o. after that. Discussed with the patient that he will referred back to his ID when he gets discharge from the hospital to follow him on his treatment and make changes if indicated
[2019-01-02] MEDS: DAPTOmycin Inj 600 MG in Sodium Chlor 0.9% Inj 100 ML IV.SIG SCH (20:36)
[2019-01-03] MEDS ORDERED: Vancomycin Inj 1,250 MG in Sodium Chlor 0.9% Inj 250 ML IV.SIG SCH (06:00)
[2019-01-03] MEDS: Senna/Docusate Sodium 8.6/50 MG Tablet PO SCH ×2 (09:16→20:19)
[2019-01-03] MEDS: Lisinopril 10 MG Tablet PO SCH (09:16)
[2019-01-03] MEDS: Morphine Inj 4 MG/ML Vial IV.PUSH PRN ×3 (11:04→20:20)
--- NOTE | 2019-01-03 17:30 | P.PNOP ---
Subjective Interval history: states he continues to have pain in the left lower extremity. He has difficulty ambulating Physical Exam Vital signs: Vital Signs 01/02/19 20:00 01/03/19 00:00 01/03/19 08:00 Temperature 98.3 F 98.6 F 97.7 F Pulse Rate 74 80 65 Respiratory Rate 20 18 16 Blood Pressure 135/62 134/65 132/63 Pulse Oximetry 98 97 98 01/03/19 12:00 01/03/19 15:17 Temperature 97.9 F 98.2 F Pulse Rate 68 66 Respiratory Rate 16 16 Blood Pressure 123/61 118/59 L Pulse Oximetry 95 95 Intake & Output 01/02/19 01/03/19 01/03/19 18:59 06:59 18:59 Intake Total 100 / 100 623.5 / 623.5 Output Total 1775 / 1775 Balance 100 / 100 -1151.5 / -1151.5 Weight 82 kg Intake: IV 100 / 100 617.5 / 617.5 Maxipime Inj 2,000 MG In NS Inj 100 / 100 100 ML @ 200 mls/hr IV.SIG Q12H [facility] Rx#:[id number] Cubicin Inj 600 MG In NS Inj 100 / 100 100 ML @ 200 mls/hr IV.SIG Q24H [facility] Rx#:[id number] Vancomycin Inj 1,750 MG In NS 517.5 / 517.5 Inj 500 ML @ 250 mls/hr IV.SIG Q18H [facility] Rx#:[id number] Oral 6 / 6 Output: Urine 1775 / 1775 Other: Date of Last Bowel Movement 12/31/18 12/31/18 Narrative: left lower extremity: Clean dry dressings intact. Some discomfort with range of motion of the knee. Distally intact sensation with active dorsiflexion and plantar flexion of foot. Results - Labs CBC & Chem 7: 01/01/19 07:41 01/02/19 08:32 Microbiology 12/30/18 14:45 Blood - Peripheral Aerobic Blood Culture - Preliminary No growth in 4 days 12/30/18 14:45 Blood - Peripheral Anaerobic Blood Culture - Preliminary No growth in 4 days 12/30/18 14:40 Blood - Peripheral Aerobic Blood Culture - Preliminary No growth in 4 days 12/30/18 14:40 Blood - Peripheral Anaerobic Blood Culture - Preliminary No growth in 4 days 12/30/18 09:00 Wound - Other Acid Fast Bacilli Smear - Final No acid fast bacilli seen 12/30/18 09:00 Tissue - Other Acid Fast Bacilli Smear - Final No acid fast bacilli seen 12/30/18 09:00 Tissue - Other Acid Fast Bacilli Smear - Final No acid fast bacilli seen Assessment and Plan - Assessment and Plan 1) Right Tibial Nail HW infection s/p Removal of tibial nail with I&D and Abx bead placement right tibia - POD 4 -WBAT -daily dressing changes with xeroform/4x4/MARK -monitor cultures--> MRSA -infectious disease consulted -will need IV Abx given chronicity of infection. will await ID recs -patient receiving pain meds from pain mgmt and last received Rx on 12/19 for a 1 month supply of oxycodone 10/325 -will defer to pain mgmt for rx moving forward -plan for home with [facility] pending cultures and infectious dz recs -f/u with Jose David or SARANYA in 2 weeks [facility] Prescription Drug Monitoring Database has been queried and verified prior to prescribing the controlled substance. Acute pain exception. This patient has normal, predicted, physiological, and time limited response to an adverse mechanical stimulus associated with surgery, trauma, or acute illness as described in my notes. There is a lack of alternative treatment options other than to include the prescribed narcotic treatment for this condition.
[2019-01-03] MEDS: DAPTOmycin Inj 600 MG in Sodium Chlor 0.9% Inj 100 ML IV.SIG SCH (20:19)
[2019-01-04] MEDS: Morphine Inj 4 MG/ML Vial IV.PUSH PRN ×5 (01:22→22:50)
[2019-01-04] MEDS ORDERED: Pharmacy Ordered Lab Info OTHER ONE (05:45)
[2019-01-04] MEDS: Senna/Docusate Sodium 8.6/50 MG Tablet PO SCH ×2 (08:33→21:10)
[2019-01-04] MEDS: Lisinopril 10 MG Tablet PO SCH (08:37)
--- NOTE | 2019-01-04 16:07 | P.PNID ---
Subjective Remarks: ID coverage. Patient is that he feels feverish. Patient notes discomfort in the right leg. Notes burning with urination. Has itching of the skin. Erythema of the skin at the back and buttocks. As reddish brown drainage coming from the distal right tibia. Patient is status post hardware removal from the right leg. Wound culture has MRSA. Patient is a 68-year-old male, admitted to the hospital for his surgery on his right lower extremity. Patient originally had the injury back in 2011 when he sustained an open fracture of his right tib fibula. He underwent repair and had an IM and screws in place. According to the patient after that he developed an infection, and received a course of IV antibiotics that was given to him for 6 weeks. He thinks is around [address] Castillo was the infectious disease doctor who treated him. Patient stated he has had other hospitalizations and surgery on his right lower extremity due to infection and they were all done in [facility]. He thinks that he has not received any other course of long IV antibiotics. He apparently has been having problem with draining wounds on his right lower extremity one in the ankle area one in the mid anterior rosen, and one below the right knee. He was told that he had an MRSA infection previously. Patient has been on and off oral Bactrim over the last 1 year that his primary care physician prescribed to him. Patient was brought into the hospital this time, and he underwent surgery , had removal of the hardware and placement of antibiotic beads. He denies any fever chills or sweats. He has not had any problem as far as diarrhea or rash or itching. Denies any urinary complaints. Past Medical History: - Medical History Medical History: Medical History (Last Reviewed 12/30/18 @ 15:06 by Ashlyn Camarillo MD) Hernia, inguinal, left High cholesterol Hypertension - Surgical History Surgical History: Surgical History (Last Reviewed 12/30/18 @ 15:06 by Ashlyn Camarillo MD) History of arthroscopy of both knees History of back surgery History of hip surgery History of orthopedic surgery Hx of CABG Hx of cardiac cath Allergies/Adverse Reactions: Allergies No Known Allergies Allergy (Verified 12/28/18 14:16) Objective Vital Signs 01/03/19 20:00 01/04/19 00:00 01/04/19 08:00 Temperature 98.6 F 98.0 F 98.0 F Pulse Rate 73 70 68 Respiratory Rate 17 17 17 Blood Pressure 133/61 105/58 L 117/69 Pulse Oximetry 98 94 L 97 01/04/19 12:00 Temperature 97.9 F Pulse Rate 78 Respiratory Rate 16 Blood Pressure 116/73 Pulse Oximetry 99 Intake & Output 01/03/19 01/04/19 01/04/19 18:59 06:59 18:59 Intake Total 380 / 380 Output Total 900 / 900 Balance -520 / -520 Weight 81.3 kg Intake: IV 100 / 100 Cubicin Inj 600 MG In NS Inj 100 / 100 100 ML @ 200 mls/hr IV.SIG Q24H [facility] Rx#:[id number] Oral 280 / 280 Output: Urine 900 / 900 Other: Date of Last Bowel Movement 01/03/19 # Bowel Movements 0 12/30/18 14:45 Blood - Peripheral Aerobic Blood Culture - Final No growth in 5 days 12/30/18 14:45 Blood - Peripheral Anaerobic Blood Culture - Final No growth in 5 days 12/30/18 14:40 Blood - Peripheral Aerobic Blood Culture - Final No growth in 5 days 12/30/18 14:40 Blood - Peripheral Anaerobic Blood Culture - Final No growth in 5 days 12/30/18 09:00 Wound - Other Acid Fast Bacilli Smear - Final No acid fast bacilli seen 12/30/18 09:00 Wound - Other Mycobacterial Culture - Pending 12/30/18 09:00 Tissue - Other Acid Fast Bacilli Smear - Final No acid fast bacilli seen 12/30/18 09:00 Tissue - Other Mycobacterial Culture - Pending 12/30/18 09:00 Tissue - Other Acid Fast Bacilli Smear - Final No acid fast bacilli seen 12/30/18 09:00 Tissue - Other Mycobacterial Culture - Pending 12/30/18 09:00 Tissue - Other Gram Stain - Final 12/30/18 09:00 Tissue - Other Wound Culture - Final S. aureus MRSA 12/30/18 09:00 Tissue - Other Gram Stain - Final 12/30/18 09:00 Tissue - Other Wound Culture - Final S. aureus MRSA 12/30/18 09:00 Wound - Other Gram Stain - Final 12/30/18 09:00 Wound - Other Wound Culture - Final S. aureus MRSA Imaging: ITS Impressions Tibia/Fibula X-Ray 12/30/18 00:00 CONCLUSION: Placement of multiple cylindrical densities in the tract of a intramedullary shar at the tibia. Physical Exam: GENERAL: Alert and oriented, no acute distress. HEENT: Head atraumatic. Extraocular movements grossly intact, pupils reactive to light. No icterus. No oropharyngeal lesions. No icterus. NECK: Supple without adenopathy. No swelling. LUNGS: Clear to auscultation. HEART: Regular rate and rhythm. No murmurs rubs or gallops. ABDOMEN: Bowel sounds present, soft, no tenderness appreciated. EXTREMITIES: Surgical incisions are intact. There is bloody drainage coming from 1 suture line at the distal right tibia. The other suture line is intact. The distal tibia above the sutures has a pinhead-sized opening which has reddish purulent drainage. The incisions at the upper aspect below the knee is intact. SKIN: Erythematous macular rash at the back and buttocks. NEUROLOGIC: No gross focal finding. PSYCH: Calm and cooperative. Assessment and Plan - Plan Impression Chronic infection RLE, with sinus tracts -MRSA positive culture. Patient status post hardware removal. - original injury was an open dracture tibfib - has been Rx with 6 weeks IV Abx for MRSA (per patient) 2012 or 2013 - has been on and off po bactrim in the last year (+) UA CAD, previous CABG, recently had stents placed. Recommendation Continue IV Cubicin. Avoiding vancomycin because of rash and itching with Vanco. Benadryl for itching. Obtain urinalysis with culture if indicated. Monitor temperature. Send a new culture from the drainage coming from the pin head size tract at the distal right tibia. He will need a course of IV antibiotics for 6 weeks and then probably additional p.o. after that. Discussed with the patient that he will referred back to his ID when he gets discharge from the hospital to follow him on his treatment and make changes if indicated
[2019-01-04 18:06] LABS: Bilirubin,Urine Negative (Negative); Clarity,Urine Clear (Clear); Color,Urine Yellow (Yellw/Straw); Glucose,Urine (UA) Negative (Negative); Leukocyte Esterase,Urine Negative (Negative); Nitrite,Urine Negative (Negative); Specific Gravity,Urine 1.019 (1.002-1.035)
[2019-01-04] MEDS: DAPTOmycin Inj 600 MG in Sodium Chlor 0.9% Inj 100 ML IV.SIG SCH (21:08)
[2019-01-05] MEDS: Morphine Inj 4 MG/ML Vial IV.PUSH PRN ×3 (02:39→22:43)
--- NOTE | 2019-01-05 07:02 | P.PNOP ---
Subjective Interval history: POD 6 s/p SUSHILA with Abx bead placement right tibia apparently patient has had reactions to vanc and cubicin. started having worsening rash last night. Dr gamino contacted who instructed to hold abx for now til he can re-eval this morning Physical Exam Vital signs: Vital Signs 01/04/19 08:00 01/04/19 12:00 01/04/19 16:00 Temperature 98.0 F 97.9 F 98.3 F Pulse Rate 68 78 77 Respiratory Rate 17 16 16 Blood Pressure 117/69 116/73 113/59 L Pulse Oximetry 97 99 99 01/04/19 20:00 01/04/19 21:09 01/05/19 00:00 Temperature 98.3 F 98.7 F Pulse Rate 81 87 Respiratory Rate 18 18 18 Blood Pressure 138/71 155/78 H Pulse Oximetry 95 95 Intake & Output 01/04/19 01/05/19 01/05/19 18:59 06:59 18:59 Intake Total 720 / 720 Output Total 800 / 800 Balance -80 / -80 Weight 88.4 kg Intake: IV 0 / 0 Cubicin Inj 600 MG In NS Inj 0 / 0 100 ML @ 200 mls/hr IV.SIG Q24H [facility] Rx#:[id number] Oral 720 / 720 Output: Urine 800 / 800 Other: Date of Last Bowel Movement 01/03/19 # Bowel Movements 0 Narrative: RLE: dressings clean and dry. intact. nvi Results - Labs CBC & Chem 7: 01/01/19 07:41 01/02/19 08:32 Laboratory Results - last 24 hr 01/04/19 16:25 Urine Color Yellow Urine Clarity Clear Urine pH 6.0 Ur Specific [place] 1.019 Urine Protein Negative Urine Glucose (UA) Negative Urine Ketones Negative Urine Occult Blood Negative Urine Nitrate Negative Urine Bilirubin Negative Urine Urobilinogen 2.0 H Ur Leukocyte Esterase Negative Urine RBC Less than 1 Urine WBC 1 Micro UA Comment Culture not ind Ur Microscopic Review Not Reportable Urine Culture Comments Culture not ind Microbiology 12/30/18 14:45 Blood - Peripheral Aerobic Blood Culture - Final No growth in 5 days 12/30/18 14:45 Blood - Peripheral Anaerobic Blood Culture - Final No growth in 5 days 12/30/18 14:40 Blood - Peripheral Aerobic Blood Culture - Final No growth in 5 days 12/30/18 14:40 Blood - Peripheral Anaerobic Blood Culture - Final No growth in 5 days Assessment and Plan - Assessment and Plan 1) Right Tibial Nail HW infection s/p Removal of tibial nail with I&D and Abx bead placement right tibia - POD 6 -WBAT -daily dressing changes with xeroform/4x4/MARK -monitor cultures--> MRSA -infectious disease consulted -will need IV Abx given chronicity of infection. will await ID recs -patient receiving pain meds from pain mgmt and last received Rx on 12/19 for a 1 month supply of oxycodone 10/325 -will defer to pain mgmt for rx moving forward -plan for home with [facility] pending cultures and infectious dz recs -f/u with Jose David or SARANYA in 2 weeks -awaiting infectious disease to place picc line and find Abx that are effective. patient cleared for discharge once PICC line and Abx arranged. [facility] Prescription Drug Monitoring Database has been queried and verified prior to prescribing the controlled substance. Acute pain exception. This patient has normal, predicted, physiological, and time limited response to an adverse mechanical stimulus associated with surgery, trauma, or acute illness as described in my notes. There is a lack of alternative treatment options other than to include the prescribed narcotic treatment for this condition.
[2019-01-05] MEDS: Senna/Docusate Sodium 8.6/50 MG Tablet PO SCH ×2 (09:10→21:11)
[2019-01-05] MEDS: Lisinopril 10 MG Tablet PO SCH (09:10)
[2019-01-05] MEDS ORDERED: Vancomycin Consult Pharmacy 1 EACH OTHER SCH (11:15)
[2019-01-05] MEDS: predniSONE 10 MG Tablet PO SCH ×2 (11:43→21:11)
--- NOTE | 2019-01-05 12:14 | P.PNID ---
Subjective Remarks: HERNANDO ulloa RN called me yesterday evening and told me about patient having reaction to the Cubicin. He reported having itching and requested that the antibiotic infusion be stopped. He received Benadryl. Today he continues to have itching. He now has rash in involving arms and the legs. The rash on the back and flanks looks the same as it did yesterday when I rounded and does not look worse. Afebrile. urine unremarkable. Wound culture from the small pin sites tract at the anterior tibia is pending. Patient is status post hardware removal from the right leg. Wound culture has MRSA. Patient is a 68-year-old male, admitted to the hospital for his surgery on his right lower extremity. Patient originally had the injury back in 2011 when he sustained an open fracture of his right tib fibula. He underwent repair and had an IM and screws in place. According to the patient after that he developed an infection, and received a course of IV antibiotics that was given to him for 6 weeks. He thinks is around [address] Castillo was the infectious disease doctor who treated him. Patient stated he has had other hospitalizations and surgery on his right lower extremity due to infection and they were all done in [facility]. He thinks that he has not received any other course of long IV antibiotics. He apparently has been having problem with draining wounds on his right lower extremity one in the ankle area one in the mid anterior rosen, and one below the right knee. He was told that he had an MRSA infection previously. Patient has been on and off oral Bactrim over the last 1 year that his primary care physician prescribed to him. Patient was brought into the hospital this time, and he underwent surgery , had removal of the hardware and placement of antibiotic beads. He denies any fever chills or sweats. He has not had any problem as far as diarrhea or rash or itching. Denies any urinary complaints. Past Medical History: - Medical History Medical History: Medical History (Last Reviewed 12/30/18 @ 15:06 by Ashlyn Camarillo MD) Hernia, inguinal, left High cholesterol Hypertension - Surgical History Surgical History: Surgical History (Last Reviewed 12/30/18 @ 15:06 by Ashlyn Camarillo MD) History of arthroscopy of both knees History of back surgery History of hip surgery History of orthopedic surgery Hx of CABG Hx of cardiac cath Allergies/Adverse Reactions: Allergies No Known Allergies Allergy (Verified 12/28/18 14:16) Objective Vital Signs 01/04/19 12:00 01/04/19 16:00 01/04/19 20:00 Temperature 97.9 F 98.3 F 98.3 F Pulse Rate 78 77 81 Respiratory Rate 16 16 18 Blood Pressure 116/73 113/59 L 138/71 Pulse Oximetry 99 99 95 01/04/19 21:09 01/05/19 00:00 01/05/19 08:00 Temperature 98.7 F 97.8 F Pulse Rate 87 79 Respiratory Rate 18 18 17 Blood Pressure 155/78 H 126/60 Pulse Oximetry 95 93 L 01/05/19 09:11 Temperature Pulse Rate Respiratory Rate 18 Blood Pressure Pulse Oximetry Intake & Output 01/04/19 01/05/19 01/05/19 18:59 06:59 18:59 Intake Total 720 / 720 Output Total 800 / 800 Balance -80 / -80 Weight 88.4 kg Intake: IV 0 / 0 Cubicin Inj 600 MG In NS Inj 0 / 0 100 ML @ 200 mls/hr IV.SIG Q24H [facility] Rx#:[id number] Oral 720 / 720 Output: Urine 800 / 800 Other: Date of Last Bowel Movement 01/03/19 # Bowel Movements 0 12/30/18 14:45 Blood - Peripheral Aerobic Blood Culture - Final No growth in 5 days 12/30/18 14:45 Blood - Peripheral Anaerobic Blood Culture - Final No growth in 5 days 12/30/18 14:40 Blood - Peripheral Aerobic Blood Culture - Final No growth in 5 days 12/30/18 14:40 Blood - Peripheral Anaerobic Blood Culture - Final No growth in 5 days 12/30/18 09:00 Wound - Other Acid Fast Bacilli Smear - Final No acid fast bacilli seen 12/30/18 09:00 Wound - Other Mycobacterial Culture - Pending 12/30/18 09:00 Tissue - Other Acid Fast Bacilli Smear - Final No acid fast bacilli seen 12/30/18 09:00 Tissue - Other Mycobacterial Culture - Pending 12/30/18 09:00 Tissue - Other Acid Fast Bacilli Smear - Final No acid fast bacilli seen 12/30/18 09:00 Tissue - Other Mycobacterial Culture - Pending Imaging: ITS Impressions Tibia/Fibula X-Ray 12/30/18 00:00 CONCLUSION: Placement of multiple cylindrical densities in the tract of a intramedullary shar at the tibia. Physical Exam: GENERAL: Alert and oriented, no acute distress. HEENT: Head atraumatic. Extraocular movements grossly intact, pupils reactive to light. No icterus. No oropharyngeal lesions. No icterus. NECK: Supple without adenopathy. No swelling. LUNGS: Clear to auscultation. HEART: Regular rate and rhythm. No murmurs rubs or gallops. ABDOMEN: Bowel sounds present, soft, no tenderness appreciated. EXTREMITIES: Pin sites tract at the right anterior tibia has oozing of reddish purulent drainage. Right lower extremity surgical incisions are intact. No clubbing or cyanosis or edema. SKIN: Erythematous macular rash at the back and buttocks. Also at the arms and legs. NEUROLOGIC: No gross focal finding. PSYCH: Calm and cooperative. 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 repeat UA negative. CAD, previous CABG, recently had stents placed. Skin rash which probably is related to Cubicin. He was also previously on cefepime which could also be the culprit. However it seems to have increased when he got Cubicin yesterday. Cefepime was stopped on 01/02/2019. Recommendation Resume vancomycin and give Vistaril prior to the dose and lengthen the administration time. Monitor response to vancomycin. Give prednisone to help with the rash and itching. PICC line insertion for outpatient antibiotics. Antibiotics to be determined by his response. Hopefully he will tolerate vancomycin without problems. He will need a course of IV antibiotics for 6 weeks and then probably additional p.o. after that. Not yet ready for discharge until we finalized antibiotics depending on his response. The rash needs to be observed since it may worsen if vancomycin is contributing. Discussed with the patient that he will referred back to his ID when he gets discharge from the hospital to follow him on his treatment and make changes if indicated
[2019-01-05] MEDS: Vancomycin Inj 1,250 MG in Sodium Chlor 0.9% Inj 250 ML IV.SIG SCH (13:55)
[2019-01-06] MEDS: Vancomycin Inj 1,250 MG in Sodium Chlor 0.9% Inj 250 ML IV.SIG SCH ×2 (00:22→14:26)
--- NOTE | 2019-01-06 07:09 | P.PNOP ---
Subjective Interval history: POD 7 s/p I&D with SUSHILA and Abx bead placement right tibia states significant pain on anterior leg and pin hole spot that has continuous drainage. tolerating switch to vancomycin Physical Exam Vital signs: Vital Signs 01/05/19 08:00 01/05/19 09:11 01/05/19 12:00 Temperature 97.8 F 98.0 F Pulse Rate 79 73 Respiratory Rate 17 18 17 Blood Pressure 126/60 117/57 L Pulse Oximetry 93 L 98 01/05/19 12:08 01/05/19 16:00 01/05/19 20:45 Temperature 98.0 F 97.9 F Pulse Rate 67 69 Respiratory Rate 20 17 18 Blood Pressure 124/63 102/55 L Pulse Oximetry 97 94 L 01/06/19 00:30 Temperature 97.7 F Pulse Rate 71 Respiratory Rate 18 Blood Pressure 129/57 L Pulse Oximetry 95 Intake & Output 01/05/19 01/06/19 01/06/19 18:59 06:59 18:59 Intake Total 525.0 / 525.0 Output Total 750 / 750 1949 Balance -750 / -750 -1425.0 / -1425.0 Weight 81 kg Intake: IV 525.0 / 525.0 Vancomycin Inj 1,250 MG In NS 525.0 / 525.0 Inj 250 ML @ 131.25 mls/hr IV. SIG Q12H [facility] Rx#:[id number] Output: Urine 750 / 750 1949 Other: Date of Last Bowel Movement 01/03/19 Narrative: RLE: incisions healing well. minimal drainage. pin hole drainage site on anterior tibia with bloody drainage. nvi Results - Labs CBC & Chem 7: 01/01/19 07:41 01/05/19 12:32 Laboratory Results - last 24 hr 01/05/19 12:32 Creatinine 1.01 Estimated GFR 74 L Microbiology 01/04/19 16:06 Wound - Leg Gram Stain - Final 01/04/19 16:06 Wound - Leg Wound Culture - Preliminary No growth in 24 hours Assessment and Plan - Assessment and Plan 1) Right Tibial Nail HW infection s/p Removal of tibial nail with I&D and Abx bead placement right tibia - POD 7 -WBAT -daily dressing changes with xeroform/4x4/MARK. ok to switch to xeroform/ primapore if minimal drainage. -monitor cultures--> MRSA -infectious disease consulted -will need IV Abx given chronicity of infection. will await ID recs -patient receiving pain meds from pain mgmt and last received Rx on 12/19 for a 1 month supply of oxycodone 10/325 -will defer to pain mgmt for rx moving forward -plan for SNF placement as patient cannot bear weight on leg due to pain. pending cultures and infectious dz recs -f/u with Jose David or SARANYA in 2 weeks -awaiting infectious disease to place picc line and find Abx that are effective. patient cleared for discharge once PICC line and Abx arranged. [employer] Prescription Drug Monitoring Database has been queried and verified prior to prescribing the controlled substance. Acute pain exception. This patient has normal, predicted, physiological, and time limited response to an adverse mechanical stimulus associated with surgery, trauma, or acute illness as described in my notes. There is a lack of alternative treatment options other than to include the prescribed narcotic treatment for this condition.
[2019-01-06 07:35] LABS: Baso % (Auto) 0.6 % (0.0-2.0); Eos # (Auto) 0.4 th/mm3 (0.0-0.4); Eos % (Auto) 8.2 % (0.0-4.0); Hematocrit 36.3 % (39.0-51.0); Hemoglobin 12.7 gm/dL (13.0-17.0); Lymph # (Auto) 0.9 th/mm3 (1.0-4.8); Lymph % (Auto) 18.1 % (9.0-44.0); Mean Corpuscular Hemoglobin 36.3 pg (27.0-34.0); Mean Corpuscular Volume 103.8 fL (80.0-100.0); Mean Platelet Volume 9.3 fL (7.0-11.0); Mono # (Auto) 0.4 th/mm3 (0.0-0.9); Mono % (Auto) 8.1 % (0.0-8.0); Neut # (Auto) 3.2 th/mm3 (1.8-7.7); Platelet Count 146 th/mm3 (150-450); Red Blood Count 3.49 mil/mm3 (4.50-5.90); Red Cell Distribution Width 12.9 % (11.6-17.2)
[2019-01-06] MEDS: Morphine Inj 4 MG/ML Vial IV.PUSH PRN ×3 (08:03→20:12)
[2019-01-06] MEDS: Senna/Docusate Sodium 8.6/50 MG Tablet PO SCH ×2 (08:04→20:16)
[2019-01-06] MEDS: Lisinopril 10 MG Tablet PO SCH (08:04)
[2019-01-06] MEDS: predniSONE 10 MG Tablet PO SCH ×2 (08:04→20:16)
--- NOTE | 2019-01-06 12:59 | P.PNID ---
Subjective Remarks: ID coverage. Patient is that he is feeling better today. Itching is better with Benadryl. Tolerated vancomycin dose with premedication. The skin rash is still significant but appears to be fading slightly. Rash still present at arms and the legs and also back and flanks. Afebrile. Wound culture from the small pin sites tract at the anterior tibia has no growth. Patient is status post hardware removal from the right leg. Wound culture has MRSA. Developed rash while receiving vancomycin but he was also on cefepime. Rash became worse after changing to daptomycin. Vancomycin was restarted along with the medication. Patient is a 68-year-old male, admitted to the hospital for his surgery on his right lower extremity. Patient originally had the injury back in 2011 when he sustained an open fracture of his right tib fibula. He underwent repair and had an IM and screws in place. According to the patient after that he developed an infection, and received a course of IV antibiotics that was given to him for 6 weeks. He thinks is around [address] Castillo was the infectious disease doctor who treated him. Patient stated he has had other hospitalizations and surgery on his right lower extremity due to infection and they were all done in [facility]. He thinks that he has not received any other course of long IV antibiotics. He apparently has been having problem with draining wounds on his right lower extremity one in the ankle area one in the mid anterior rosen, and one below the right knee. He was told that he had an MRSA infection previously. Patient has been on and off oral Bactrim over the last 1 year that his primary care physician prescribed to him. Patient was brought into the hospital this time, and he underwent surgery , had removal of the hardware and placement of antibiotic beads. Past Medical History: - Medical History Medical History: Medical History (Last Reviewed 12/30/18 @ 15:06 by Ashlyn Camarillo MD) Hernia, inguinal, left High cholesterol Hypertension - Surgical History Surgical History: Surgical History (Last Reviewed 12/30/18 @ 15:06 by Ashlyn Camarillo MD) History of arthroscopy of both knees History of back surgery History of hip surgery History of orthopedic surgery Hx of CABG Hx of cardiac cath Allergies/Adverse Reactions: Allergies No Known Allergies Allergy (Verified 12/28/18 14:16) Objective Vital Signs 01/05/19 16:00 01/05/19 20:45 01/06/19 00:30 Temperature 98.0 F 97.9 F 97.7 F Pulse Rate 67 69 71 Respiratory Rate 17 18 18 Blood Pressure 124/63 102/55 L 129/57 L Pulse Oximetry 97 94 L 95 01/06/19 08:00 01/06/19 11:33 Temperature 97.7 F 98.2 F Pulse Rate 63 66 Respiratory Rate 20 18 Blood Pressure 143/67 H 117/56 L Pulse Oximetry 96 95 Intake & Output 01/05/19 01/06/19 01/06/19 18:59 06:59 18:59 Intake Total 525.0 / 525.0 Output Total 750 / 750 1949 Balance -750 / -750 -1425.0 / -1425.0 Weight 81 kg Intake: IV 525.0 / 525.0 Vancomycin Inj 1,250 MG In NS 525.0 / 525.0 Inj 250 ML @ 131.25 mls/hr IV. SIG Q12H [facility] Rx#:[id number] Output: Urine 750 / 750 1949 Other: Date of Last Bowel Movement 01/03/19 01/04/19 16:06 Wound - Leg Gram Stain - Final 01/04/19 16:06 Wound - Leg Wound Culture - Preliminary No growth in 48 hours 12/30/18 14:45 Blood - Peripheral Aerobic Blood Culture - Final No growth in 5 days 12/30/18 14:45 Blood - Peripheral Anaerobic Blood Culture - Final No growth in 5 days 12/30/18 14:40 Blood - Peripheral Aerobic Blood Culture - Final No growth in 5 days 12/30/18 14:40 Blood - Peripheral Anaerobic Blood Culture - Final No growth in 5 days Lab - Hematology Results 01/06/19 07:18 WBC 5.0 RBC 3.49 L Hgb 12.7 L Hct 36.3 L MCV 103.8 H MCH 36.3 H MCHC 35.0 RDW 12.9 Plt Count 146 L MPV 9.3 Neut % (Auto) 65.0 Lymph % (Auto) 18.1 [place] % (Auto) 8.1 H Eos % (Auto) 8.2 H Baso % (Auto) 0.6 Neut # (Auto) 3.2 Lymph # (Auto) 0.9 L [place] # (Auto) 0.4 Eos # (Auto) 0.4 Baso # (Auto) 0.0 WBC Differential . Differential Comment Auto diff final Lab - Chemistry Results 01/05/19 12:32 Creatinine 1.01 Estimated GFR 74 L Imaging: ITS Impressions Tibia/Fibula X-Ray 12/30/18 00:00 CONCLUSION: Placement of multiple cylindrical densities in the tract of a intramedullary shar at the tibia. Physical Exam: GENERAL: Alert and oriented, no acute distress. HEENT: Head atraumatic. Extraocular movements grossly intact, pupils reactive to light. No icterus. No oropharyngeal lesions. No icterus. NECK: Supple without adenopathy. No swelling. LUNGS: Clear to auscultation. HEART: Regular rate and rhythm. No murmurs rubs or gallops. ABDOMEN: Bowel sounds present, soft, no tenderness appreciated. EXTREMITIES: Pin size tract at the right anterior tibia has oozing droplets of reddish purulent drainage. Right lower extremity surgical incisions are intact. No clubbing or cyanosis or edema. SKIN: Erythematous macular rash at the back and buttocks. Also at the arms and legs. This appears to be about the same as yesterday. NEUROLOGIC: No gross focal finding. PSYCH: Calm and cooperative. 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 This is oozing bloody drainage. Orthopedics notified. They do not think anything additional needs to be done. (+) UA. repeat UA negative. CAD, previous CABG, recently had stents placed. Skin rash which probably is related to Cubicin. He was also previously on cefepime which could also be the culprit. However it seems to have increased when he got Cubicin yesterday. Cefepime was stopped on 01/02/2019. Recommendation Resume vancomycin and give Vistaril prior to the dose and lengthen the administration time. Monitor response to vancomycin. Continue prednisone x 4 doses. PICC line insertion for outpatient antibiotics. Antibiotics to be determined by his response. Hopefully he will tolerate vancomycin without problems. Plan on IV antibiotic until 02/10/19 He will need a course of IV antibiotics for 6 weeks and then probably additional p.o. after that. Not yet ready for discharge until we finalized antibiotics depending on his response. The rash needs to be observed since it may worsen if vancomycin is contributing. Anticipate discharge in day or two. Discussed with the patient that he will referred back to his ID when he gets discharge from the hospital to follow him on his treatment and make changes if indicated
[2019-01-06] MEDS ORDERED: Heparin Central Flush 100 UNIT/ML 5 ML Vial IV.FLUSH PRN (14:38)
[2019-01-07] MEDS: Vancomycin Inj 1,250 MG in Sodium Chlor 0.9% Inj 250 ML IV.SIG SCH ×2 (00:50→12:51)
[2019-01-07] MEDS: Morphine Inj 4 MG/ML Vial IV.PUSH PRN ×5 (00:50→23:10)
--- NOTE | 2019-01-07 07:53 | P.PNOP ---
Subjective Interval history: Resting comfortably. States he has difficulty ambulating because of his right leg. Physical Exam Vital signs: Vital Signs 01/06/19 08:00 01/06/19 08:05 01/06/19 11:33 Temperature 97.7 F 98.2 F Pulse Rate 63 66 Respiratory Rate 20 20 18 Blood Pressure 143/67 H 117/56 L Pulse Oximetry 96 95 01/06/19 14:10 01/06/19 14:25 01/06/19 16:00 Temperature 97.6 F Pulse Rate 69 Respiratory Rate 20 21 18 Blood Pressure 120/62 Pulse Oximetry 96 01/06/19 18:35 01/06/19 20:00 01/06/19 23:00 Temperature 98.5 F Pulse Rate 64 Respiratory Rate 20 18 22 Blood Pressure 118/58 L Pulse Oximetry 96 01/07/19 00:00 01/07/19 01:38 Temperature 97.9 F Pulse Rate 65 Respiratory Rate 18 18 Blood Pressure 132/61 Pulse Oximetry 96 Intake & Output 01/06/19 01/07/19 01/07/19 18:59 06:59 18:59 Intake Total 960 / 960 1285.0 / 1285.0 Output Total 600 / 600 2049 Balance 360 / 360 -765.0 / -765.0 Weight 81 kg Intake: IV 525.0 / 525.0 Vancomycin Inj 1,250 MG In NS 525.0 / 525.0 Inj 250 ML @ 131.25 mls/hr IV. SIG Q12H [facility] Rx#:[id number] Oral 960 / 960 760 / 760 Output: Urine 600 / 600 2049 Narrative: Resting comfortably. Pain relatively controlled at rest. Results - Labs CBC & Chem 7: 01/06/19 07:18 01/07/19 06:10 Laboratory Results - last 24 hr 01/07/19 06:10 Creatinine 0.94 Estimated GFR 80 L Microbiology 12/30/18 09:00 Wound - Other Acid Fast Bacilli Smear - Final No acid fast bacilli seen 12/30/18 09:00 Wound - Other Mycobacterial Culture - Preliminary No growth in 1 week 12/30/18 09:00 Tissue - Other Fungal Smear - Final No fungal elements seen 12/30/18 09:00 Tissue - Other Fungal Culture - Preliminary No growth in 1 week 12/30/18 09:00 Tissue - Other Acid Fast Bacilli Smear - Final No acid fast bacilli seen 12/30/18 09:00 Tissue - Other Mycobacterial Culture - Preliminary No growth in 1 week 12/30/18 09:00 Wound - Other Fungal Smear - Final No fungal elements seen 12/30/18 09:00 Wound - Other Fungal Culture - Preliminary No growth in 1 week 12/30/18 09:00 Tissue - Other Fungal Smear - Final No fungal elements seen 12/30/18 09:00 Tissue - Other Fungal Culture - Preliminary No growth in 1 week 12/30/18 09:00 Tissue - Other Acid Fast Bacilli Smear - Final No acid fast bacilli seen 12/30/18 09:00 Tissue - Other Mycobacterial Culture - Preliminary No growth in 1 week 01/04/19 16:06 Wound - Leg Gram Stain - Final 01/04/19 16:06 Wound - Leg Wound Culture - Preliminary No growth in 48 hours Assessment and Plan - Assessment and Plan 1) Right Tibial Nail HW infection s/p Removal of tibial nail with I&D and Abx bead placement right tibia - POD 8 -WBAT -daily dressing changes with xeroform/4x4/MARK. ok to switch to xeroform/ primapore if minimal drainage. -monitor cultures--> MRSA -infectious disease consulted -will need IV Abx given chronicity of infection. will await ID recs -patient receiving pain meds from pain mgmt and last received Rx on 12/19 for a 1 month supply of oxycodone 10/325 -will defer to pain mgmt for rx moving forward -plan for SNF placement as patient cannot bear weight on leg due to pain. pending cultures and infectious dz recs -f/u with Jose David or SARANYA in 2 weeks -awaiting infectious disease to place picc line and find Abx that are effective. patient cleared for discharge once PICC line and Abx arranged. [employer] Prescription Drug Monitoring Database has been queried and verified prior to prescribing the controlled substance. Acute pain exception. This patient has normal, predicted, physiological, and time limited response to an adverse mechanical stimulus associated with surgery, trauma, or acute illness as described in my notes. There is a lack of alternative treatment options other than to include the prescribed narcotic treatment for this condition.
[2019-01-07] MEDS: Senna/Docusate Sodium 8.6/50 MG Tablet PO SCH ×2 (08:47→21:08)
[2019-01-07] MEDS: Lisinopril 10 MG Tablet PO SCH (08:47)
[2019-01-07] MEDS: Heparin Central Flush 100 UNIT/ML 5 ML Vial IV.FLUSH SCH (08:47)
[2019-01-07] MEDS ORDERED: Pharmacy Ordered Lab Info OTHER ONE (12:45)
--- NOTE | 2019-01-07 13:35 | P.PNID ---
Subjective Remarks: ID coverage. Patient says he feels okay. Tolerating vancomycin with premedication. The rash at the's, legs, back and flanks is improving. He has no new complaints. Reports that he has continued oozing from it tiny opening at the anterior tibia. Itching is better. Afebrile. Wound culture from the small pin size tract at the anterior tibia is pending. Patient is status post hardware removal from the right leg. Wound culture has MRSA. Patient is a 68-year-old male, admitted to the hospital for his surgery on his right lower extremity. Patient originally had the injury back in 2011 when he sustained an open fracture of his right tib fibula. He underwent repair and had an IM and screws in place. According to the patient after that he developed an infection, and received a course of IV antibiotics that was given to him for 6 weeks. He thinks is around [address] Castillo was the infectious disease doctor who treated him. Patient stated he has had other hospitalizations and surgery on his right lower extremity due to infection and they were all done in [facility], [place]. He thinks that he has not received any other course of long IV antibiotics. He apparently has been having problem with draining wounds on his right lower extremity one in the ankle area one in the mid anterior rosen, and one below the right knee. He was told that he had an MRSA infection previously. Patient has been on and off oral Bactrim over the last 1 year that his primary care physician prescribed to him. Patient was brought into the hospital this time, and he underwent surgery , had removal of the hardware and placement of antibiotic beads. He denies any fever chills or sweats. He has not had any problem as far as diarrhea or rash or itching. Denies any urinary complaints. Past Medical History: - Medical History Medical History: Medical History (Last Reviewed 12/30/18 @ 15:06 by Ashlyn Camarillo MD) Hernia, inguinal, left High cholesterol Hypertension - Surgical History Surgical History: Surgical History (Last Reviewed 12/30/18 @ 15:06 by Ashlyn Camarillo MD) History of arthroscopy of both knees History of back surgery History of hip surgery History of orthopedic surgery Hx of CABG Hx of cardiac cath Allergies/Adverse Reactions: Allergies No Known Allergies Allergy (Verified 12/28/18 14:16) Objective Vital Signs 01/06/19 14:10 01/06/19 14:25 01/06/19 16:00 Temperature 97.6 F Pulse Rate 69 Respiratory Rate 20 21 18 Blood Pressure 120/62 Pulse Oximetry 96 01/06/19 18:35 01/06/19 20:00 01/06/19 23:00 Temperature 98.5 F Pulse Rate 64 Respiratory Rate 20 18 22 Blood Pressure 118/58 L Pulse Oximetry 96 01/07/19 00:00 01/07/19 01:38 01/07/19 08:00 Temperature 97.9 F 97.8 F Pulse Rate 65 62 Respiratory Rate 18 18 19 Blood Pressure 132/61 154/69 H Pulse Oximetry 96 97 01/07/19 12:00 Temperature 97.9 F Pulse Rate 66 Respiratory Rate 18 Blood Pressure 112/59 L Pulse Oximetry 96 Intake & Output 01/06/19 01/07/19 01/07/19 18:59 06:59 18:59 Intake Total 960 / 960 1285.0 / 1285.0 Output Total 600 / 600 2049 Balance 360 / 360 -765.0 / -765.0 Weight 81 kg Intake: IV 525.0 / 525.0 Vancomycin Inj 1,250 MG In NS 525.0 / 525.0 Inj 250 ML @ 131.25 mls/hr IV. SIG Q12H [facility] Rx#:[id number] Oral 960 / 960 760 / 760 Output: Urine 600 / 600 204901/04/19 16:06 Wound - Leg Gram Stain - Final 01/04/19 16:06 Wound - Leg Wound Culture - Final No growth in 72 hours (aerobically and anaerobically ) 12/30/18 09:00 Wound - Other Acid Fast Bacilli Smear - Final No acid fast bacilli seen 12/30/18 09:00 Wound - Other Mycobacterial Culture - Preliminary No growth in 1 week 12/30/18 09:00 Tissue - Other Fungal Smear - Final No fungal elements seen 12/30/18 09:00 Tissue - Other Fungal Culture - Preliminary No growth in 1 week 12/30/18 09:00 Tissue - Other Acid Fast Bacilli Smear - Final No acid fast bacilli seen 12/30/18 09:00 Tissue - Other Mycobacterial Culture - Preliminary No growth in 1 week 12/30/18 09:00 Wound - Other Fungal Smear - Final No fungal elements seen 12/30/18 09:00 Wound - Other Fungal Culture - Preliminary No growth in 1 week 12/30/18 09:00 Tissue - Other Fungal Smear - Final No fungal elements seen 12/30/18 09:00 Tissue - Other Fungal Culture - Preliminary No growth in 1 week 12/30/18 09:00 Tissue - Other Acid Fast Bacilli Smear - Final No acid fast bacilli seen 12/30/18 09:00 Tissue - Other Mycobacterial Culture - Preliminary No growth in 1 week 12/30/18 14:45 Blood - Peripheral Aerobic Blood Culture - Final No growth in 5 days 12/30/18 14:45 Blood - Peripheral Anaerobic Blood Culture - Final No growth in 5 days 12/30/18 14:40 Blood - Peripheral Aerobic Blood Culture - Final No growth in 5 days 12/30/18 14:40 Blood - Peripheral Anaerobic Blood Culture - Final No growth in 5 days Lab - Hematology Results 01/06/19 07:18 WBC 5.0 RBC 3.49 L Hgb 12.7 L Hct 36.3 L MCV 103.8 H MCH 36.3 H MCHC 35.0 RDW 12.9 Plt Count 146 L MPV 9.3 Neut % (Auto) 65.0 Lymph % (Auto) 18.1 Andrews % (Auto) 8.1 H Eos % (Auto) 8.2 H Baso % (Auto) 0.6 Neut # (Auto) 3.2 Lymph # (Auto) 0.9 L Andrews # (Auto) 0.4 Eos # (Auto) 0.4 Baso # (Auto) 0.0 WBC Differential . Differential Comment Auto diff final Lab - Chemistry Results 01/05/19 01/07/19 12:32 06:10 Creatinine 1.01 0.94 Estimated GFR 74 L 80 L Imaging: ITS Impressions Tibia/Fibula X-Ray 12/30/18 00:00 CONCLUSION: Placement of multiple cylindrical densities in the tract of a intramedullary shar at the tibia. Physical Exam: GENERAL: Alert and oriented, no acute distress. HEENT: Head atraumatic. Extraocular movements grossly intact, pupils reactive to light. No icterus. No oropharyngeal lesions. No icterus. NECK: Supple without adenopathy. No swelling. LUNGS: Clear to auscultation. HEART: Regular rate and rhythm. No murmurs rubs or gallops. ABDOMEN: Bowel sounds present, soft, no tenderness appreciated. EXTREMITIES: Pin size tract at the right anterior tibia has oozing of reddish purulent drainage. Right lower extremity surgical incisions are intact. No clubbing or cyanosis or edema. SKIN: Erythematous macular rash at the back and buttocks. Also at the arms and legs. Improving. NEUROLOGIC: No gross focal finding. PSYCH: Calm and cooperative. 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 repeat UA negative. CAD, previous CABG, recently had stents placed. Skin rash: Vancomycin and cefepime was stopped. However the rash worsened when Cubicin was started. Cefepime was stopped on 01/02/2019. He is now tolerating vancomycin with premedication. Recommendation Continue vancomycin and give Vistaril prior to the dose and lengthen the administration time. Monitor response to vancomycin. - Give prednisone to help with the rash and itching. PICC line insertion for outpatient antibiotics. Antibiotics to be determined by his response. No current problems with the vancomycin. He will need a course of IV antibiotics for 6 weeks and then probably additional p.o. after that. Not yet ready for discharge until we finalized antibiotics depending on his response. The rash needs to be observed since it may worsen if vancomycin is contributing. Discussed with the patient that he will referred back to his ID when he gets discharge from the hospital to follow him on his treatment and make changes if indicated We will continue to observe him over the weekend. Dr. Camarillo will be back on Wednesday to resume care.
[2019-01-08] MEDS: Vancomycin Inj 1,250 MG in Sodium Chlor 0.9% Inj 250 ML IV.SIG SCH ×2 (01:05→12:42)
[2019-01-08] MEDS: Morphine Inj 4 MG/ML Vial IV.PUSH PRN ×4 (02:39→20:47)
--- NOTE | 2019-01-08 07:42 | P.PNOP ---
Subjective Interval history: Resting comfortably. Continues to complain of pain over the right tibia Physical Exam Vital signs: Vital Signs 01/07/19 08:00 01/07/19 12:00 01/07/19 15:53 Temperature 97.8 F 97.9 F 97.8 F Pulse Rate 62 66 66 Respiratory Rate 19 18 18 Blood Pressure 154/69 H 112/59 L 115/63 Pulse Oximetry 97 96 93 L 01/07/19 16:08 01/07/19 20:00 01/08/19 00:00 Temperature 98.3 F 98.6 F Pulse Rate 70 Respiratory Rate 18 18 18 Blood Pressure 111/59 L 134/78 Pulse Oximetry 96 98 Intake & Output 01/07/19 01/08/19 01/08/19 18:59 06:59 18:59 Intake Total 2062.5 / 2062.5 1042.5 / 1042.5 Output Total 1175 / 1175 2750 / 2750 Balance 887.5 / 887.5 -1707.5 / -1707.5 Weight 81 kg Intake: IV 262.5 / 262.5 262.5 / 262.5 Vancomycin Inj 1,250 MG In NS 262.5 / 262.5 262.5 / 262.5 Inj 250 ML @ 131.25 mls/hr IV. SIG Q12H [facility] Rx#:[id number] Oral 1800 / 1800 780 / 780 Output: Urine 1175 / 1175 2750 / 2750 Other: # Bowel Movements 1 Narrative: Awake, alert, no acute distress Right lower extremity: Dressings remain in place. No significant drainage on dressing. Negative Homans. brisk cap refill Results - Labs CBC & Chem 7: 01/06/19 07:18 01/07/19 06:10 Laboratory Results - last 24 hr 01/07/19 12:45 Vancomycin Trough 15.4 H Microbiology 01/04/19 16:06 Wound - Leg Gram Stain - Final 01/04/19 16:06 Wound - Leg Wound Culture - Final No growth in 72 hours (aerobically and anaerobically ) Assessment and Plan - Assessment and Plan 1) Right Tibial Nail HW infection s/p Removal of tibial nail with I&D and Abx bead placement right tibia - POD 9 -WBAT -daily dressing changes with xeroform/4x4/MARK. ok to switch to xeroform/ primapore if minimal drainage. -monitor cultures--> MRSA -infectious disease consulted -will need IV Abx given chronicity of infection. will await ID recs. Patient with rash and therefore awaiting response to antibiotics and rash for final recommendations -patient receiving pain meds from pain mgmt and last received Rx on 12/19 for a 1 month supply of oxycodone 10/325 -will defer to pain mgmt for rx moving forward -plan for SNF placement as patient cannot bear weight on leg due to pain. pending cultures and infectious dz recs -f/u with [facility] or [facility] in 2 weeks -awaiting infectious disease to place picc line and find Abx that are effective. patient cleared for discharge once PICC line and Abx arranged. [email or web address] Prescription Drug Monitoring Database has been queried and verified prior to prescribing the controlled substance. Acute pain exception. This patient has normal, predicted, physiological, and time limited response to an adverse mechanical stimulus associated with surgery, trauma, or acute illness as described in my notes. There is a lack of alternative treatment options other than to include the prescribed narcotic treatment for this condition.
[2019-01-08] MEDS: Lisinopril 10 MG Tablet PO SCH (08:01)
[2019-01-08] MEDS: Senna/Docusate Sodium 8.6/50 MG Tablet PO SCH ×2 (08:01→20:47)
[2019-01-08] MEDS: Heparin Central Flush 100 UNIT/ML 5 ML Vial IV.FLUSH SCH (08:02)
[2019-01-09] MEDS: Morphine Inj 4 MG/ML Vial IV.PUSH PRN ×4 (00:08→12:47)
[2019-01-09] MEDS: Vancomycin Inj 1,250 MG in Sodium Chlor 0.9% Inj 250 ML IV.SIG SCH ×2 (00:36→13:09)
--- NOTE | 2019-01-09 08:35 | P.PNOP ---
Subjective Interval history: States he continues to have difficulty ambulating due to pain in the right leg. He wants to be able to go to rehab since he is unsafe to go home by himself Physical Exam Vital signs: Vital Signs 01/08/19 12:00 01/08/19 15:54 01/08/19 20:00 Temperature 98.3 F 98.5 F 99.6 F Pulse Rate 75 70 75 Respiratory Rate 19 19 16 Blood Pressure 115/63 112/57 L 107/55 L Pulse Oximetry 95 97 96 01/09/19 00:00 Temperature 99.1 F Pulse Rate 74 Respiratory Rate 16 Blood Pressure 142/77 H Pulse Oximetry 95 Intake & Output 01/08/19 01/09/19 01/09/19 18:59 06:59 18:59 Intake Total 1462.5 / 1462.5 262.5 / 262.5 Output Total 1000 / 1000 700 / 700 Balance 462.5 / 462.5 -437.5 / -437.5 Weight 80.8 kg Intake: IV 262.5 / 262.5 262.5 / 262.5 Vancomycin Inj 1,250 MG In NS 262.5 / 262.5 262.5 / 262.5 Inj 250 ML @ 131.25 mls/hr IV. SIG Q12H [facility] Rx#:[id number] Oral 1200 / 1200 Output: Urine 1000 / 1000 700 / 700 Other: Date of Last Bowel Movement 01/08/19 Narrative: Right lower extremity: Clean dressings in place with mild drainage. He has intact sensation with active dorsiflexion plantarflexion of foot. Palpation over the anterior tibia has improved since Wednesday Results - Labs CBC & Chem 7: 01/06/19 07:18 01/09/19 05:00 Laboratory Results - last 24 hr 01/09/19 05:00 Creatinine 1.01 Estimated GFR 74 L Assessment and Plan - Assessment and Plan 1) Right Tibial Nail HW infection s/p Removal of tibial nail with I&D and Abx bead placement right tibia - POD 10 -WBAT -daily dressing changes with xeroform/4x4/MARK. ok to switch to xeroform/ primapore if minimal drainage. -monitor cultures--> MRSA -infectious disease consulted -will need IV Abx given chronicity of infection. will await ID recs. Patient with rash and therefore awaiting response to antibiotics and rash for final recommendations -patient receiving pain meds from pain mgmt and last received Rx on 12/19 for a 1 month supply of oxycodone 10/325. Since discharge plan is to rehab, Percocet 10 prescription is printed for facility. -will defer to pain mgmt for rx moving forward while at home -plan for SNF placement as patient cannot bear weight on leg due to pain. pending cultures and infectious dz recs -f/u with [facility] or [facility] in 2 weeks -awaiting infectious disease to place picc line and find Abx that are effective. patient cleared for discharge once PICC line and Abx arranged. [employer] Prescription Drug Monitoring Database has been queried and verified prior to prescribing the controlled substance. Acute pain exception. This patient has normal, predicted, physiological, and time limited response to an adverse mechanical stimulus associated with surgery, trauma, or acute illness as described in my notes. There is a lack of alternative treatment options other than to include the prescribed narcotic treatment for this condition.
[2019-01-09] MEDS: Senna/Docusate Sodium 8.6/50 MG Tablet PO SCH (09:19)
[2019-01-09] MEDS: Lisinopril 10 MG Tablet PO SCH (09:19)
[2019-01-09] MEDS: Heparin Central Flush 100 UNIT/ML 5 ML Vial IV.FLUSH SCH (09:20)
--- NOTE | 2019-01-09 09:41 | P.PNID ---
Subjective Remarks: Patient is a 68-year-old male, admitted to the hospital for his surgery on his right lower extremity. Patient originally had the injury back in 2011 when he sustained an open fracture of his right tib fibula. He underwent repair and had an IM and screws in place. According to the patient after that he developed an infection, and received a course of IV antibiotics that was given to him for 6 weeks. He thinks is around [address] Castillo was the infectious disease doctor who treated him. Patient stated he has had other hospitalizations and surgery on his right lower extremity due to infection and they were all done in [facility]. He thinks that he has not received any other course of long IV antibiotics. He apparently has been having problem with draining wounds on his right lower extremity one in the ankle area one in the mid anterior rosen, and one below the right knee. He was told that he had an MRSA infection previously. Patient has been on and off oral Bactrim over the last 1 year that his primary care physician prescribed to him. Patient was brought into the hospital this time, and he underwent surgery , had removal of the hardware and placement of antibiotic beads. He denies any fever chills or sweats. He has not had any problem as far as diarrhea or rash or itching. Denies any urinary complaints. Infectious disease consultation has been requested to assist with evaluation and treatment of his ongoing infection. Notes reviewed D/W RN Mahin ok Pain RLE Notes peristent bloody drainage in a very small open wound distal R leg Also notes an area on his R knee - he thinks it is going to pop open and start draining No fever ESR 10 CRP 0.66 Intraop C/S MRSA Developed rash post op - ABx adjusted; on Vanco, getting premed with Vistaril Rash seems to have resolved according to the patient Was on Vanco and Cefepime post-op when he developed the rash; ABx changed to Cubicin - per report rash got worse, so placed back on vanco Has PICC in place Being evaluated for rehab on D/C Antibiotics: Vancomycin Lines: PICC RUE Past Medical History: Hernia, inguinal, left High cholesterol Hypertension History of arthroscopy of both knees History of back surgery History of hip surgery History of orthopedic surgery Hx of CABG Hx of cardiac cath Allergies/Adverse Reactions: Allergies No Known Allergies Allergy (Verified 12/28/18 14:16) Objective Vital Signs 01/08/19 12:00 01/08/19 15:54 01/08/19 20:00 Temperature 98.3 F 98.5 F 99.6 F Pulse Rate 75 70 75 Respiratory Rate 19 19 16 Blood Pressure 115/63 112/57 L 107/55 L Pulse Oximetry 95 97 96 01/09/19 00:00 Temperature 99.1 F Pulse Rate 74 Respiratory Rate 16 Blood Pressure 142/77 H Pulse Oximetry 95 Intake & Output 01/08/19 01/09/19 01/09/19 18:59 06:59 18:59 Intake Total 1462.5 / 1462.5 262.5 / 262.5 Output Total 1000 / 1000 700 / 700 Balance 462.5 / 462.5 -437.5 / -437.5 Weight 80.8 kg Intake: IV 262.5 / 262.5 262.5 / 262.5 Vancomycin Inj 1,250 MG In NS 262.5 / 262.5 262.5 / 262.5 Inj 250 ML @ 131.25 mls/hr IV. SIG Q12H [facility] Rx#:[id number] Oral 1200 / 1200 Output: Urine 1000 / 1000 700 / 700 Other: Date of Last Bowel Movement 01/08/19 01/04/19 16:06 Wound - Leg Gram Stain - Final 01/04/19 16:06 Wound - Leg Wound Culture - Final No growth in 72 hours (aerobically and anaerobically ) 12/30/18 09:00 Wound - Other Acid Fast Bacilli Smear - Final No acid fast bacilli seen 12/30/18 09:00 Wound - Other Mycobacterial Culture - Preliminary No growth in 1 week 12/30/18 09:00 Tissue - Other Fungal Smear - Final No fungal elements seen 12/30/18 09:00 Tissue - Other Fungal Culture - Preliminary No growth in 1 week 12/30/18 09:00 Tissue - Other Acid Fast Bacilli Smear - Final No acid fast bacilli seen 12/30/18 09:00 Tissue - Other Mycobacterial Culture - Preliminary No growth in 1 week 12/30/18 09:00 Wound - Other Fungal Smear - Final No fungal elements seen 12/30/18 09:00 Wound - Other Fungal Culture - Preliminary No growth in 1 week 12/30/18 09:00 Tissue - Other Fungal Smear - Final No fungal elements seen 12/30/18 09:00 Tissue - Other Fungal Culture - Preliminary No growth in 1 week 12/30/18 09:00 Tissue - Other Acid Fast Bacilli Smear - Final No acid fast bacilli seen 12/30/18 09:00 Tissue - Other Mycobacterial Culture - Preliminary No growth in 1 week Lab - Chemistry Results 01/09/19 05:00 Creatinine 1.01 Estimated GFR 74 L Imaging: ITS Impressions Tibia/Fibula X-Ray 12/30/18 00:00 CONCLUSION: Placement of multiple cylindrical densities in the tract of a intramedullary shar at the tibia. Physical Exam: GENERAL: Alert and oriented, no acute distress. HEENT: Head atraumatic. Extraocular movements grossly intact, pupils reactive to light. No icterus. No oropharyngeal lesions. No icterus. NECK: Supple without adenopathy. No swelling. LUNGS: Clear to auscultation. HEART: Regular rate and rhythm. No murmurs rubs or gallops. ABDOMEN: Bowel sounds present, soft, no tenderness appreciated. EXTREMITIES:Incisions R knee, ok, has one incisions with an dark red and swollen area. Pin size tract at the right anterior tibia has oozing of dark red blood. The other 2 incisions in ankle are dry. Right lower extremity surgical incisions are intact. No clubbing or cyanosis or edema. SKIN: Rash seems to have resolved. NEUROLOGIC: No gross focal finding. PSYCH: Calm and cooperative. 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 This is oozing bloody drainage. Orthopedics notified. They do not think anything additional needs to be done. (+) UA. repeat UA negative. CAD, previous CABG, recently had stents placed. Skin rash, ?from Cubicin vs Cefepime Recommendation Continue IV vanco - plan 6 weeks - anticipated end date February 09 - Labs weekly: vanco trough, CBC, creatinine - premed with Vistaril He will need follow-up with Dr Castillo, his ID MD who can follow him while on IV Abx Will fill out Abx infusion form Likely need also chronic po ABx - but will have his ID MD decide on that OK to D/C once arrangements made for his IV Abx D/W RN Explained plan to the patient
--- NOTE | 2019-01-09 09:45 | P.DCO ---
Post Hospital Infusion Therapy - Infusion Therapy Location of Infusion Therapy: [facility] Infusion Therapy Order - Patient Information Patient Weight: 80.8 kg - Diagnosis (1) Osteomyelitis of tibia Code(s): M86.9 - Osteomyelitis, unspecified (2) MRSA (methicillin resistant Staphylococcus aureus) infection Code(s): A49.02 - Methicillin resistant Staphylococcus aureus infection, unspecified site - Additional Information Additional Medications: IV Vancomycin 1.25 gm IV q12H Vistaril 50 mg po 30 minutes before each Vanco infusion Please have pharmacy adjust vanco dosing, aim for Vanco trough 15-20 Venous Access: PICC Line Additional Instructions: [x] Peripheral flush and dressing changes per protocol [x] Implanted port and central director of online merchandising: * Implanted port: 10 ml Normal Saline followed by 5 ml Heparin 100 units/ml Heparin flush after each use and monthly to maintain. [] May leave port accessed during therapy. [] May leave peripheral site accessed for duration of therapy. [x] If patient has SOB or respiratory distress, check oxygen saturation. If less than 90% or clinical signs of respiratory distress, administer oxygen at 2 L/min. via nasal cannula and notify physician. [x] Anaphylaxis/Reaction orders: * Stop infusion. * Keep IV line open with saline flush. * Notify physician. * Monitor vital signs every 15 minutes until symptoms resolve. * Check Oxygen saturation; Oxygen at 2 L/min. via nasal cannula if less than 90% or clinical signs of respiratory distress. * Administer diphenhydramine (Benadryl) 25 mg IV STAT, (unless patient has received as pre-med). May repeat once, if necessary. * Solu-Cortef 250 mg IVP over 30-60 seconds, use 100 mg vials for each dissolution. * Epinephrine (1mg/1 ml) 0.3 mg subcutaneously or IVP now with any signs of respiratory distress. * Check with physician for new additional pre-med orders if patient is re- challenged or re-treated. [x] May remove PICC line when treatment complete, after confirming with Dr Castillo. [x] If the patient is admitted to the hospital, the ED, or transferred via [facility] , complete transfer form including medication reconciliation order sheet. Weekly Labs: CBC w/diff (Labs every Wednesday - copy to ar and Dr Castillo), Creatinine, Vancomycin Trough Additional Information: Please make appointment with Dr Castillo for his ID follow-up in 3 weeks - Case Management Consult Case Management Consult-IVF: (IV Abx) - Patient Information Allergies No Known Allergies Allergy (Verified 12/28/18 14:16)
[2019-01-09] MEDS ORDERED: Pharmacy Ordered Lab Info OTHER ONE (12:45)
[2019-01-09 12:59] VITALS: BP 122/60; PULSE 75; RESP 18; TEMP 98.7; O2SAT 92
== END 2019-01-09 16:02 | DRG 494 ==
LOC: HSDC 05:25 → HSDI 09:34 → N07 13:39
PROVIDERS: ADMIT Orthopaedic Surgery Orthopaedic Trauma; ATTEND Orthopaedic Surgery Orthopaedic Trauma
CPT/HCPCS: 36569; 73590; 76000; 76937; 80053; 80202; 81001; 82565; 85014; 85018; 85025; 85651; 85652; 86140; 86403; 87015; 87040; 87070; 87086; 87102; 87116; 87147; 87176; 87186; 87205; 87206; 93005; 94150; 97110; 97163; 97530; C1769; C9124; J0690; J0692; J0878; J1100; J1170; J1580; J1642; J2270; J2405; J2704; J3010; J3370; J7040; J7050; J7120; J7506; J7512